=== PATIENT | female | born 1950 | race Caucasian/White ===

== ENCOUNTER 2016-08-20 15:27 | Inpatient (IN) | payer OTHER ==
[2016-08-20] MEDS ORDERED: Sodium Chloride 0.9% 1000 ML 1,000 ML ONE (16:09)
[2016-08-20] MEDS ORDERED: Sodium Chloride 0.9% 1000 ML 1,000 ML IV SCH ×2 (16:15→20:48)
--- NOTE | 2016-08-20 16:18 | ERPHSYRPT ---
- History of Present Illness Time Seen by Provider: 08/20/16 15:56 Source: patient Exam Limitations: clinical condition Patient Subjective Stated Complaint: PT REPORTS ALL OVER PAIN-ALL OVER JOINT PAIN-INTERMITTANT NUMBNESS ET TINGLING BEGINNING SEVERAL MONTHS AGO-DENIES CHANGES TO S/S-STATES THAT SOMETIMES GETTING A MASSAGE WILL HELP Triage Nursing Assessment: PT PINK WARM ET DRY-A & O X 3-RESP EASY ET NONLABORED -DENIES INJURY-STATES THAT PCP CHANGED HER CHOLESTEROL MEDICINE BUT SHE HAS NOT FOLLOWED UP AFTER THAT Physician History: PATIENT WITH HISTORY OF COPD, HYPERTENSION COMPLAINS OF GENERALIZED PAIN IN ALL JOINTS AND MUSCLES, WHICH SHE DESCRIBES CRAMPS FOR THE PAST 3 MONTHS. HAS OCCASIONAL DYSPNEA. DENIES FEVER, CHILLS, COUGH, CHEST PAIN, DIAPHORESIS AND PALPITATIONS Timing/Duration: other (FOR 3 MONTHS) Modifying Factors: Improves With: movement Associated Symptoms: other (PAIN IN JOINTS) Allergies/Adverse Reactions: No Known Drug Allergies Allergy (Verified 08/20/16 16:44) Home Medications: Amlodipine Besylate 10 mg [Norvasc 10 MG] 10 mg PO HS 08/20/16 [History] Citalopram Hydrobromide 20 mg* [ceLEXa 20 MG] 20 mg PO DAILY 08/20/16 [ History] Levothyroxine Sodium 75 Mcg [Synthroid 75 Mcg] 50 mcg PO DAILY 08/20/16 [ History] Potassium Chloride 10 Meq Tab* [Klor Con 10 MEQ] 10 meq PO HS 08/20/16 [ History] Hx Tetanus, Diphtheria Vaccination/Date Given: Yes Hx Influenza Vaccination/Date Given: No Hx Pneumococcal Vaccination/Date Given: No Immunizations Up to Date: Yes - Review of Systems Constitutional: No Fever, No Chills Eyes: No Symptoms Ears, Nose, & Throat: No Symptoms Respiratory: No Cough, No Dyspnea Cardiac: No Symptoms, No Chest Pain, No Edema, No Syncope Abdominal/Gastrointestinal: No Symptoms, No Abdominal Pain, No Nausea, No Vomiting, No Diarrhea Genitourinary Symptoms: No Symptoms, No Dysuria Musculoskeletal: Arthralgias, Myalgias, No Back Pain, No Neck Pain Skin: No Symptoms, No Rash Neurological: No Dizziness, No Focal Weakness, No Sensory Changes Psychological: No Symptoms Endocrine: No Symptoms All Other Systems: Reviewed and Negative - Past Medical History Pertinent Past Medical History: Yes Neurological History: No Pertinent History ENT History: No Pertinent History Cardiac History: No Pertinent History Respiratory History: Asthma Endocrine Medical History: Hypothyroidism Musculoskeletal History: No Pertinent History GI Medical History: No Pertinent History History: No Pertinent History Psycho-Social History: Depression Female Reproductive Disorders: No Pertinent History - Past Surgical History Past Surgical History: Yes Cardiac: Angioplasty - Social History Smoking Status: Never smoker Exposure to second hand smoke: No Drug Use: none Patient Lives Alone: No - Nursing Vital Signs Nursing Vital Signs: Initial Vital Signs Temperature 98.9 F Temperature Source Oral Pulse Rate 80 Respiratory Rate 20 Blood Pressure [] 125/65 Pain Intensity 9 - Physical Exam General Appearance: no apparent distress, alert Eye Exam: PERRL/EOMI, eyes nml inspection Ears, Nose, Throat Exam: normal ENT inspection, TMs normal, pharynx normal, moist mucous membranes Neck Exam: normal inspection, non-tender, supple, full range of motion Respiratory Exam: normal breath sounds, lungs clear, other (NO WHEEZES), No respiratory distress Cardiovascular Exam: regular rate/rhythm, normal heart sounds, normal peripheral pulses Gastrointestinal/Abdomen Exam: soft, normal bowel sounds, No tenderness, No mass Rectal Exam: normal exam Back Exam: normal inspection, normal range of motion, other (BILATERAL CALF TENDERNESS, NEGATIVE HOMMAN SIGN), No CVA tenderness, No vertebral tenderness Extremity Exam: normal inspection, normal range of motion, pelvis stable Neurologic Exam: alert, oriented x 3, cooperative, normal mood/affect, nml cerebellar function, nml station & gait, sensation nml, No motor deficits Skin Exam: normal color, warm, dry, No rash Lymphatic Exam: No adenopathy SpO2 Interpretation: normal SpO2: 98 Oxygen Delivery: Room Air - Course EKG Interpreted by Me: RATE, Sinus Rhythm (INFERIOR LATERAL ST SEGMENT DEPRESSION) - Radiology Exams Chest X-ray Interpretation: Reviewed by me (BILATERAL BREAST IMPLANTS, NO INFILTRATES) Ordered Tests: Active Orders 24 hr Category Date Time Status Coal Deliverer STAT Care 08/20/16 16:01 Active Clean Catch Urine Specimen STAT Care 08/20/16 16:16 Active EKG-ER Only STAT Care 08/20/16 16:01 Active IV Insertion STAT Care 08/20/16 16:16 Active Oxygen-ED Only NASAL CANNULA 3 lpm Care 08/20/16 17:46 Active CHEST 1 VIEW (PORTABLE) Stat Exams 08/20/16 16:02 Taken CBC W DIFF Stat Lab 08/20/16 16:15 Completed CK-Creatinine Phosphokinase Stat Lab 08/20/16 16:15 Completed CMP Stat Lab 08/20/16 16:15 Completed D-DIMER QUANTITATION Stat Lab 08/20/16 16:15 Completed Ferritin Stat Lab 08/20/16 17:00 Completed Manual Differential NC Stat Lab 08/20/16 16:15 Completed Myoglobin Stat Lab 08/20/16 16:15 Completed Occult Blood,Stool Other Stat Lab 08/20/16 16:27 Completed PROTIME WITH INR Stat Lab 08/20/16 16:15 Completed Peripheral Smear DrDomenicaordered Routine Lab 08/20/16 16:00 Received SED RATE [Erythrocyte Sedimentation Rate] Stat Lab 08/20/16 16:15 Completed TROPONIN Q3H Lab 08/20/16 16:01 Completed TROPONIN Q3H Lab 08/20/16 20:15 Ordered TROPONIN Q3H Lab 08/20/16 23:15 Ordered TROPONIN Q3H Lab 08/21/16 02:15 Ordered TROPONIN Q3H Lab 08/21/16 05:15 Ordered Urine Triage Profile Stat Lab 08/20/16 16:30 Completed Vitamin B12 Stat Lab 08/20/16 17:00 Completed Transfer Order Routine Transfer 08/20/16 17:19 Ordered Medication Summary Generic Name Dose Route Start Last Admin Trade Name Freq PRN Reason Stop Dose Admin Sodium Chloride 1,000 mls @ 100 mls/hr 08/20/16 16:15 08/20/16 16:32 Sodium Chloride 0.9% 1000 Ml IV 09/19/16 16:14 100 mls/hr .Q10H TARYN Administration Lab/Rad Data: Laboratory Result Diagrams 08/20/16 16:15 08/20/16 16:15 Laboratory Results 08/20/16 08/20/16 08/20/16 Range/Units 17:00 17:00 16:30 WBC (4.0-10.5) K/mm3 RBC (4.1-5.4) M/mm3 Hgb (12.0-16.0) gm/dl Hct (35-47) % MCV (78-100) fl MCH (26-32) pg MCHC (32-36) g/dl RDW (11.5-14.0) % Plt Count (150-450) K/mm3 MPV (6-9.5) fl Gran % (36.0-66.0) % Lymphocytes % (24.0-44.0) % Monocytes % (0.0-12.0) % Eosinophils % (0.00-5.0) % Basophils % (0.0-0.4) % Segmented Neutrophils (36.0-66.0) % Lymphocytes (Manual) (24-44) % Monocytes (Manual) (0.0-12.0) % Basophils # (0-0.4) Differential Comment Platelet Estimate (NORMAL) Hypochromasia Microcytosis ESR (0-20) mm/hr INR (0.8-3.0) D-Dimer (0.00-0.49) mg/L Sodium (136-145) mEq/L Potassium (3.5-5.1) mEq/L Chloride (98-107) mEq/L Carbon Dioxide (21-32) mEq/L Anion Gap (5-15) MEQ/L BUN (9-20) mg/dL Creatinine (0.55-1.30) mg/dl Estimated GFR ML/MIN Glucose (70-110) MG/DL Calcium (8.5-10.1) mg/dL Iron (50-175) ug/dl TIBC (250-450) ug/dl Iron Saturation (20-39) % Ferritin 4 L (8-388) Total Bilirubin (0.2-1.0) mg/dL AST (15-37) U/L ALT (12-78) U/L Alkaline Phosphatase (46-116) U/L Creatine Kinase (26-192) U/L Myoglobin (9.0-82.5) NG/ML Troponin I (0.000-0.056) ng/ml Serum Total Protein (6.4-8.2) gm/dL Albumin (3.4-5.0) g/dL Vitamin B12 285 (193-986) Stool Occult Blood (Negative) Urine Opiates Level NEG. (NEGATIVE) Ur Methadone NEG. (NEGATIVE) Urine Barbiturates NEG. (NEGATIVE) Ur Phencyclidine (PCP) NEG. (NEGATIVE) Urine Amphetamine NEG. (NEGATIVE) U Benzodiazepine Level NEG. (NEGATIVE) Urine Cocaine NEG. (NEGATIVE) Urine Marijuana (THC) NEG. (NEGATIVE) ABO Group A Rh Factor POSITIVE Antibody Screen NEGATIVE (NEGATIVE) Crossmatch COMPATIBLE (COMPATIBLE) 08/20/16 08/20/16 08/20/16 Range/Units 16:27 16:15 16:15 WBC (4.0-10.5) K/mm3 RBC (4.1-5.4) M/mm3 Hgb (12.0-16.0) gm/dl Hct (35-47) % MCV (78-100) fl MCH (26-32) pg MCHC (32-36) g/dl RDW (11.5-14.0) % Plt Count (150-450) K/mm3 MPV (6-9.5) fl Gran % (36.0-66.0) % Lymphocytes % (24.0-44.0) % Monocytes % (0.0-12.0) % Eosinophils % (0.00-5.0) % Basophils % (0.0-0.4) % Segmented Neutrophils (36.0-66.0) % Lymphocytes (Manual) (24-44) % Monocytes (Manual) (0.0-12.0) % Basophils # (0-0.4) Differential Comment Platelet Estimate (NORMAL) Hypochromasia Microcytosis ESR 39 H (0-20) mm/hr INR 1.07 (0.8-3.0) D-Dimer 0.596 H* (0.00-0.49) mg/L Sodium (136-145) mEq/L Potassium (3.5-5.1) mEq/L Chloride (98-107) mEq/L Carbon Dioxide (21-32) mEq/L Anion Gap (5-15) MEQ/L BUN (9-20) mg/dL Creatinine (0.55-1.30) mg/dl Estimated GFR ML/MIN Glucose (70-110) MG/DL Calcium (8.5-10.1) mg/dL Iron (50-175) ug/dl TIBC (250-450) ug/dl Iron Saturation (20-39) % Ferritin (8-388) Total Bilirubin (0.2-1.0) mg/dL AST (15-37) U/L ALT (12-78) U/L Alkaline Phosphatase (46-116) U/L Creatine Kinase (26-192) U/L Myoglobin (9.0-82.5) NG/ML Troponin I (0.000-0.056) ng/ml Serum Total Protein (6.4-8.2) gm/dL Albumin (3.4-5.0) g/dL Vitamin B12 (193-986) Stool Occult Blood NEGATIVE (Negative) Urine Opiates Level (NEGATIVE) Ur Methadone (NEGATIVE) Urine Barbiturates (NEGATIVE) Ur Phencyclidine (PCP) (NEGATIVE) Urine Amphetamine (NEGATIVE) U Benzodiazepine Level (NEGATIVE) Urine Cocaine (NEGATIVE) Urine Marijuana (THC) (NEGATIVE) ABO Group Rh Factor Antibody Screen (NEGATIVE) Crossmatch (COMPATIBLE) 08/20/16 08/20/16 08/20/16 Range/Units 16:15 16:15 16:01 WBC 5.9 (4.0-10.5) K/mm3 RBC 2.99 L (4.1-5.4) M/mm3 Hgb 6.7 L* (12.0-16.0) gm/dl Hct 23.2 L (35-47) % MCV 77.6 L (78-100) fl MCH 22.4 L (26-32) pg MCHC 28.9 L (32-36) g/dl RDW 15.2 H (11.5-14.0) % Plt Count 334 (150-450) K/mm3 MPV 9.4 (6-9.5) fl Gran % 63.7 (36.0-66.0) % Lymphocytes % 25.1 (24.0-44.0) % Monocytes % 7.3 (0.0-12.0) % Eosinophils % 3.4 (0.00-5.0) % Basophils % 0.5 (0.0-0.4) % Segmented Neutrophils 78 H (36.0-66.0) % Lymphocytes (Manual) 16 L (24-44) % Monocytes (Manual) 6 (0.0-12.0) % Basophils # 0.03 (0-0.4) Differential Comment ABNORMAL Platelet Estimate NORMAL (NORMAL) Hypochromasia 2+ Microcytosis 1+ ESR (0-20) mm/hr INR (0.8-3.0) D-Dimer (0.00-0.49) mg/L Sodium 139 (136-145) mEq/L Potassium 3.4 L (3.5-5.1) mEq/L Chloride 103 (98-107) mEq/L Carbon Dioxide 26.6 (21-32) mEq/L Anion Gap 13.0 (5-15) MEQ/L BUN 17 (9-20) mg/dL Creatinine 0.88 (0.55-1.30) mg/dl Estimated GFR > 60 ML/MIN Glucose 109 (70-110) MG/DL Calcium 8.1 L (8.5-10.1) mg/dL Iron (50-175) ug/dl TIBC (250-450) ug/dl Iron Saturation (20-39) % Ferritin (8-388) Total Bilirubin 0.2 (0.2-1.0) mg/dL AST 12 L (15-37) U/L ALT 13 (12-78) U/L Alkaline Phosphatase 67 (46-116) U/L Creatine Kinase 66 (26-192) U/L Myoglobin 32.0 (9.0-82.5) NG/ML Troponin I < 0.017 (0.000-0.056) ng/ml Serum Total Protein 6.8 (6.4-8.2) gm/dL Albumin 3.6 (3.4-5.0) g/dL Vitamin B12 (193-986) Stool Occult Blood (Negative) Urine Opiates Level (NEGATIVE) Ur Methadone (NEGATIVE) Urine Barbiturates (NEGATIVE) Ur Phencyclidine (PCP) (NEGATIVE) Urine Amphetamine (NEGATIVE) U Benzodiazepine Level (NEGATIVE) Urine Cocaine (NEGATIVE) Urine Marijuana (THC) (NEGATIVE) ABO Group Rh Factor Antibody Screen (NEGATIVE) Crossmatch (COMPATIBLE) 08/20/16 Range/Units 16:01 WBC (4.0-10.5) K/mm3 RBC (4.1-5.4) M/mm3 Hgb (12.0-16.0) gm/dl Hct (35-47) % MCV (78-100) fl MCH (26-32) pg MCHC (32-36) g/dl RDW (11.5-14.0) % Plt Count (150-450) K/mm3 MPV (6-9.5) fl Gran % (36.0-66.0) % Lymphocytes % (24.0-44.0) % Monocytes % (0.0-12.0) % Eosinophils % (0.00-5.0) % Basophils % (0.0-0.4) % Segmented Neutrophils (36.0-66.0) % Lymphocytes (Manual) (24-44) % Monocytes (Manual) (0.0-12.0) % Basophils # (0-0.4) Differential Comment Platelet Estimate (NORMAL) Hypochromasia Microcytosis ESR (0-20) mm/hr INR (0.8-3.0) D-Dimer (0.00-0.49) mg/L Sodium (136-145) mEq/L Potassium (3.5-5.1) mEq/L Chloride (98-107) mEq/L Carbon Dioxide (21-32) mEq/L Anion Gap (5-15) MEQ/L BUN (9-20) mg/dL Creatinine (0.55-1.30) mg/dl Estimated GFR ML/MIN Glucose (70-110) MG/DL Calcium (8.5-10.1) mg/dL Iron 10 L (50-175) ug/dl TIBC 415 (250-450) ug/dl Iron Saturation 2.4 L (20-39) % Ferritin (8-388) Total Bilirubin (0.2-1.0) mg/dL AST (15-37) U/L ALT (12-78) U/L Alkaline Phosphatase (46-116) U/L Creatine Kinase (26-192) U/L Myoglobin (9.0-82.5) NG/ML Troponin I (0.000-0.056) ng/ml Serum Total Protein (6.4-8.2) gm/dL Albumin (3.4-5.0) g/dL Vitamin B12 (193-986) Stool Occult Blood (Negative) Urine Opiates Level (NEGATIVE) Ur Methadone (NEGATIVE) Urine Barbiturates (NEGATIVE) Ur Phencyclidine (PCP) (NEGATIVE) Urine Amphetamine (NEGATIVE) U Benzodiazepine Level (NEGATIVE) Urine Cocaine (NEGATIVE) Urine Marijuana (THC) (NEGATIVE) ABO Group Rh Factor Antibody Screen (NEGATIVE) Crossmatch (COMPATIBLE) - Progress Progress Note: 08/20/16 17:16 PATIENT TYPED AND CROSSED FOR 4 UNITS PRBC 08/20/16 19:17 BLOOD TRANSFUSION INITIATED PRIOR TO TRANSFER TO FLOOR Discussed with : Yessi (DISCUSSED WITH DR Bari RAZA AT 1715 FOR ADMISSION) Will see patient in: hospital (full admit) - Departure Time of Disposition: 19:30 Departure Disposition: In-patient Admission Clinical Impression: SYMPTOMATIC ANEMIA Condition: Stable Critical Care Time: No Referrals: MINDY MILLER [Primary Care Provider] -
[2016-08-20 16:19] LABS: BASOPHIL % 0.5 % (0.0-0.4); Eosinophil % 3.4 % (0.00-5.0); Granulocytes % 63.7 % (36.0-66.0); Lymphocytes % 25.1 % (24.0-44.0); Mean Cell Volume 77.6 fl (78-100); Mean Corpuscular Hemoglobin 22.4 pg (26-32); Mean Platelet Volume 9.4 fl (6-9.5); Monocytes % 7.3 % (0.0-12.0); Platelet Count 334 K/mm3 (150-450); Red Blood Count 2.99 M/mm3 (4.1-5.4); Red Cell Distribution Width 15.2 % (11.5-14.0); White Blood Count 5.9 K/mm3 (4.0-10.5)
[2016-08-20 16:33] LABS: INR 1.07 (0.8-3.0)
[2016-08-20 16:49] LABS: ALBUMIN 3.6 g/dL (3.4-5.0); ALKALINE PHOSPHATASE 67 U/L (46-116); BILIRUBIN,TOTAL 0.2 mg/dL (0.2-1.0); BLOOD UREA NITROGEN 17 mg/dL (9-20); CHLORIDE 103 mEq/L (98-107); Carbon Dioxide 26.6 mEq/L (21-32); Glucose 109 MG/DL (70-110); Potassium 3.4 mEq/L (3.5-5.1); SGOT/AST 12 U/L (15-37); SGPT/ALT 13 U/L (12-78); SODIUM 139 mEq/L (136-145); Total Protein 6.8 gm/dL (6.4-8.2)
[2016-08-20 17:35] LABS: Platelet Estimate NORMAL (NORMAL); Total Cells Counted 100
[2016-08-20 17:36] LABS: Hypochromia 2+; Microcytosis 1+
[2016-08-20] MEDS ORDERED: Zofran 4 MG/2 ML VIAL IV PRN (20:48)
--- NOTE | 2016-08-20 21:08 | XRAY ---
Indication: Dyspnea and back pain. Comparison: November 25, 2014. Portable chest remains hyperinflated and clear. Heart is not enlarged. Vascular normal. Bony thorax intact again with mild osteopenia. Again bilateral breast implants. Impression: Stable nonacute chest with chronic features.
[2016-08-20] MEDS ORDERED: Xopenex 1.25 MG/0.5 ML UD NEBULE IH PRN (22:05)
[2016-08-20] MEDS ORDERED: PROVENTIL COMMON CANISTER IH PRN (22:05)
[2016-08-20] MEDS ORDERED: Sodium Chloride 3 ML UD NEBULES IH PRN (22:06)
[2016-08-21 05:33] LABS: BASOPHIL % 0.7 % (0.0-0.4); Eosinophil % 5.2 % (0.00-5.0); Granulocytes % 56.1 % (36.0-66.0); Lymphocytes % 25.5 % (24.0-44.0); Mean Cell Volume 81.1 fl (78-100); Mean Platelet Volume 9.6 fl (6-9.5); Monocytes % 12.5 % (0.0-12.0); Platelet Count 294 K/mm3 (150-450); Red Blood Count 3.97 M/mm3 (4.1-5.4); Red Cell Distribution Width 16.9 % (11.5-14.0); White Blood Count 5.5 K/mm3 (4.0-10.5)
[2016-08-21 05:38] LABS: Mean Corpuscular Hemoglobin 24.6 pg (26-32)
[2016-08-21 07:58] VITALS: BP 158/67; PULSE 69; O2SAT 94
--- NOTE | 2016-08-21 08:28 | PCM.DCORD ---
- Discharge Discharge Date: 08/21/16 Disposition: Home, Self-Care Condition: Stable Prescriptions: New Aspirin 81 mg PO DAILY #30 tablet Rosuvastatin Calcium [Crestor] 20 mg PO DAILY #30 tablet Ferrous Sulfate 325 mg [Feosol 325 mg] 325 mg PO TID #90 tablet Ranitidine HCl 0 mg PO DAILY #30 tablet Continue Potassium Chloride 10 Meq Tab* [Klor Con 10 MEQ] 10 meq PO HS Levothyroxine Sodium 75 Mcg [Synthroid 75 Mcg] 50 mcg PO DAILY Amlodipine Besylate 10 mg [Norvasc 10 MG] 10 mg PO HS Citalopram Hydrobromide 20 mg* [ceLEXa 20 MG] 20 mg PO DAILY Clopidogrel Bisulfate 75 mg [PLAVIX 75 MG Tablet] 75 mg PO DAILY Additional Instructions: Dr. Ying for upper and lower endoscopy diagnosis iron deficiency anemia prefers Sunday or Sunday appointment if possible Follow up with: CHICO RAZA [ACTIVE STAFF] - 1 Week NILTON YING JR [NON-STAFF PHY W/O PRIVILEGES] - 1 Week
[2016-08-21] MEDS ORDERED: NORVASC 5 MG PO SCH (10:00)
[2016-08-21] MEDS ORDERED: Klor Con 10 MEQ PO SCH (10:00)
--- NOTE | 2016-08-21 21:07 | PCM.HP ---
History of Present Illness - Chief Complaint Chief Complaint: Symptomatic Anemia Date: 08/21/16 History of Present Illness: is a 65 year old female. with history of copd and severe peripheral vascular disease with previous carotid endarterectomy bilateral and fem fem bypass in the past. She has had upper and lower scopes several years ago by Dr. Raman in [place] with polyps and she was to follow up. She has been having progressively increaseing fatigue weakness and myalgias over the past few months. [facility] tried stopping crestor with no help and eventually became very short of breath and weak yesterday and came to ED and was found to have severe anemia iron deficiency and heme negative stools. She does not recall any dark or tarry stools on other blood loss. She has no chest pain and she feels much better with shortness of breath resolved after the transfusion that she tolerated well. - Review of Systems Constitutional: Fatigue, No Fever, No Chills Eyes: No Symptoms Ears, Nose, & Throat: No Symptoms Respiratory: Short Of Breath, No Cough Cardiac: No Chest Pain, No Edema, No Syncope Abdominal/Gastrointestinal: No Abdominal Pain, No Nausea, No Vomiting, No Diarrhea Genitourinary Symptoms: No Dysuria Musculoskeletal: No Back Pain, No Neck Pain Skin: No Rash Neurological: No Dizziness, No Focal Weakness, No Sensory Changes Psychological: No Symptoms Endocrine: No Symptoms Hematologic/Lymphatic: No Symptoms Immunological/Allergic: No Symptoms Medications & Allergies Home Medications: Home Medication List Amlodipine Besylate 10 mg [Norvasc 10 MG] 10 mg PO HS 08/20/16 [History Confirmed 08/20/16] Citalopram Hydrobromide 20 mg* [ceLEXa 20 MG] 20 mg PO DAILY 08/20/16 [ History Confirmed 08/20/16] Clopidogrel Bisulfate 75 mg [PLAVIX 75 MG Tablet] 75 mg PO DAILY 08/20/16 [History Confirmed 08/20/16] Levothyroxine Sodium 75 Mcg [Synthroid 75 Mcg] 50 mcg PO DAILY 08/20/16 [ History Confirmed 08/20/16] Potassium Chloride 10 Meq Tab* [Klor Con 10 MEQ] 10 meq PO HS 08/20/16 [ History Confirmed 08/20/16] Aspirin 81 mg PO DAILY #30 tablet 08/21/16 [Rx] Ferrous Sulfate 325 mg [Feosol 325 mg] 325 mg PO TID #90 tablet 08/21/16 [ Rx] Ranitidine HCl 0 mg PO DAILY #30 tablet 08/21/16 [Rx] Rosuvastatin Calcium [Crestor] 20 mg PO DAILY #30 tablet 08/21/16 [Rx] Allergies/Adverse Reactions: Allergies Allergy/AdvReac Type Severity Reaction Status Date / Time No Known Drug Allergies Allergy Verified 08/20/16 16:44 - Past Medical History Past Medical History: Yes Neurological History: No Pertinent History ENT History: No Pertinent History Cardiac History: No Pertinent History Respiratory History: Asthma Endocrine Medical History: Hypothyroidism Musculoskelatal History: No Pertinent History GI Medical History: No Pertinent History History: No Pertinent History Pyscho-Social History: Depression Reproductive Disorders: No Pertinent History - Female History Are you now?: No - Past Surgical History Past Surgical History: Yes Neuro Surgical History: No Pertinent History Cardiac History: Angioplasty Respiratory Surgery: No Pertinent History GI Surgical History: No Pertinent History Genitourinary Surgical Hx: No Pertinent History Musculskeletal Surgical Hx: No Pertinent History Female Surgical History: Hysterectomy - Social History Smoking Status: Never smoker Exposure to second hand smoke: No Alcohol: None Drug Use: none - Physical Exam Vital Signs: Vital Signs - 24 hr Temp Pulse Resp BP Pulse Ox 08/21/16 08:00 16 08/21/16 07:57 98.3 F 69 16 158/67 94 L 08/21/16 04:00 98.2 F 75 18 116/56 95 08/21/16 01:25 18 08/21/16 00:00 98.3 F 80 20 98/60 97 08/20/16 22:00 70 18 99 General Appearance: no apparent distress, alert Neurologic Exam: alert, oriented x 3, cooperative, normal mood/affect, nml cerebellar function, nml station & gait, sensation nml, No motor deficits Eye Exam: PERRL/EOMI, eyes nml inspection Ears, Nose, Throat Exam: normal ENT inspection, TMs normal, pharynx normal, moist mucous membranes Neck Exam: normal inspection, non-tender, supple, full range of motion Respiratory Exam: normal breath sounds, lungs clear, No respiratory distress Cardiovascular Exam: regular rate/rhythm, normal heart sounds, normal peripheral pulses Gastrointestinal/Abdomen Exam: soft, normal bowel sounds, No tenderness, No mass Back Exam: normal inspection, normal range of motion, No CVA tenderness, No vertebral tenderness Extremity Exam: normal inspection, normal range of motion, pelvis stable Skin Exam: normal color, warm, dry, No rash Lymphatic Exam: No adenopathy Results - Labs Lab/Micro Results: Lab Results-Last 24 Hours 08/20/16 08/21/16 08/21/16 Range/Units 23:45 02:40 05:12 WBC (4.0-10.5) K/mm3 RBC (4.1-5.4) M/mm3 Hgb (12.0-16.0) gm/dl Hct (35-47) % MCV (78-100) fl MCH (26-32) pg MCHC (32-36) g/dl RDW (11.5-14.0) % Plt Count (150-450) K/mm3 MPV (6-9.5) fl Gran % (36.0-66.0) % Lymphocytes % (24.0-44.0) % Monocytes % (0.0-12.0) % Eosinophils % (0.00-5.0) % Basophils % (0.0-0.4) % Basophils # (0-0.4) Troponin I 0.017 < 0.017 < 0.017 (0.000-0.056) ng/ml 08/21/16 Range/Units 05:12 WBC 5.5 (4.0-10.5) K/mm3 RBC 3.97 L (4.1-5.4) M/mm3 Hgb 9.8 L (12.0-16.0) gm/dl Hct 32.2 L (35-47) % MCV 81.1 (78-100) fl MCH 24.6 L (26-32) pg MCHC 30.4 L (32-36) g/dl RDW 16.9 H (11.5-14.0) % Plt Count 294 (150-450) K/mm3 MPV 9.6 H (6-9.5) fl Gran % 56.1 (36.0-66.0) % Lymphocytes % 25.5 (24.0-44.0) % Monocytes % 12.5 H (0.0-12.0) % Eosinophils % 5.2 H (0.00-5.0) % Basophils % 0.7 (0.0-0.4) % Basophils # 0.04 (0-0.4) Troponin I (0.000-0.056) ng/ml - Other Procedures and Tests Respiratory Therapy 08/20/16 22:05 Respiratory MDI Respiratory Nebulizer Assessment/Plan (1) Iron deficiency anemia Status: Acute Assessment & Plan: severe symptomatic transfused 2 Units prbc retic count, folate, LEONIDES and peripheral smear are pending she is doing much better no ongoing blood loss follow up in 1 week repeat levels she is going to have repeat upper and lower endoscopy outpatient by Dr. Raman. start iron therapy Code(s): D50.9 - IRON DEFICIENCY ANEMIA, UNSPECIFIED (2) Peripheral vascular disease Status: Acute Code(s): I73.9 - PERIPHERAL VASCULAR DISEASE, UNSPECIFIED
== END 2016-08-21 10:07 | disposition home or self-care (01) | DRG 812 ==
LOC: ED 15:27 → MED SURG 20:35
PROVIDERS: ADMIT Family Medicine; ATTEND Family Medicine
DX: D50.9 Iron deficiency anemia, unspecified (principal); I73.9 Peripheral vascular disease, unspecified; E03.9 Hypothyroidism, unspecified; J45.909 Unspecified asthma, uncomplicated; F32.9 Major depressive disorder, single episode, unspecified; Z98.61 Coronary angioplasty status
CPT/HCPCS: 36000; 36415; 36430; 71010; 80053; 80307; 82272; 82550; 82607; 82728; 82747; 83540; 83550; 83874; 84484; 85025; 85045; 85060; 85379; 85610; 85652; 86038; 86850; 86900; 86901; 86922; 93005; 93041; 94760; 99285; P9016; A9270-GY

== ENCOUNTER 2016-10-02 10:39 | Day surgery (SDC) | payer MEDICARE, OTHER ==
--- NOTE | 2016-10-02 08:26 | HP ---
PROCEDURE DATE: 10/02/16 HISTORY OF PRESENT ILLNESS: 65 y/o had recent blood transfusion of 2 units in August. Had some dark stools. Last colonoscopy was 2-3 years ago. She had some polyps removed. At this time, the dark stools improved. She has been on iron and is unclear the true color her stools are without the iron. She has got anemia. Radiology recommended upper and lower endoscopy for further evaluation. PAST MEDICAL HISTORY: Peripheral vascular disease, hypothyroidism, and hypertension. CURRENT MEDICATIONS: Ranitidine, aspirin, Klor-Con, citalopram, Clopidogrel, amlodipine, levothyroxine, ferrous sulfate, and rosuvastatin calcium. Please see the patient's spelling. ALLERGIES: NKDA. PAST SURGICAL HISTORY: She had FEM-FEM bypass, bilateral carotid endarterectomy. FAMILY HISTORY: Diabetes, heart disease, and stroke. SOCIAL HISTORY: No smoking or alcohol abuse currently. REVIEW OF SYSTEMS: 12 systems reviewed pertinent for admission assessment. No chest pain or palpitations. Other systems negative or noncontributory other than above and per preadmission questionnaire. PHYSICAL EXAMINATION: GENERAL: No acute distress. HEENT: Sclerae nonicteric. NECK: No JVD. CHEST: Clear to auscultation. CVS: Regular rhythm. ABDOMEN: Soft, nontender. No peritoneal signs. EXTREMITIES: No significant edema. NEURO: A&O, moving extremities symmetrically. No gross motor deficits noted. IMPRESSION: 1. ANEMIA, UNCLEAR ETIOLOGY. [place] she would benefit from upper and lower endoscopy for further evaluation. Risks and benefits explained in detail, but not limited to, bleeding; infection; small risk of bowel injury or perforation possibly requiring open procedure; small risk of missed or nondiagnosis or incomplete exam possibly requiring barium enema or other studies or procedures; general risks of anesthesia or sedation; risk of bowel prep; postoperative risk of nausea, vomiting, or cramping, but not limited to as well as possibility of inability to diagnose the etiology of her anemia possibly requiring other testing or referral to other specialists. She understands and agrees to the planned procedure. Will proceed with EGD and colonoscopy as an outpatient.
[~2016-10-02 10:39] MED LIST: DIPRIVAN 200 MG/20 ML IV ONE; Ketamine HCl 50 MG/ML IV ONE
[2016-10-02] MEDS ORDERED: Lactated Ringers 1,000 ML IV SCH (11:00)
--- NOTE | 2016-10-02 14:40 | OP ---
SURGERY DATE/TIME: 10/02/2016 1220 PREOPERATIVE DIAGNOSES: 1) History of polyps. 2) History of dark stools. 3) History of anemia; rule out upper or lower GI source. POSTOPERATIVE DIAGNOSES: 1) Minimal to mild gastritis. 2) Short segment of small fingerlet, question distal gastroesophagitis versus metaplasia path pending. 3) Poor bowel prep limiting exam. 4) Few diverticula. 5) Small internal and external hemorrhoids. 6) Small raised lesions versus hyperplastic lesion versus early polyps in the upper rectum, rectosigmoid area. PROCEDURES: 1) EGD with cold biopsy of the antrum. 2) Cold biopsy distal esophagus. 3) Colonoscopy to terminal ileum. 4) Retrograde ileoscopy. 5) Hot biopsy small vague raised lesions upper rectum rectosigmoid area. SURGEON: Dr. Kali Martinez. ANESTHESIA: MAC. ESTIMATED BLOOD LOSS: Minimal. INDICATIONS: As noted above. Risks and benefits explained in detail and not limited to and consent obtained. DESCRIPTION OF PROCEDURE AND FINDINGS: The patient was taken to the endoscopy room. MAC anesthesia induced. After official time out and no disagreement with planned procedure, a bite block positioned. Video gastroscope easily passed down the esophagus through the patent pylorus to the junction of the second and third portion of the duodenum. Duodenum and duodenal bulb grossly unremarkable. Back in the stomach she had some minimal to mild gastritis, no evidence of any ulcers, polyps or masses. Cold biopsy taken in the antrum to evaluate for Helicobacter pylori. Otherwise on retroflex the gastroesophageal junction is fairly snug against the scope. There are no signs of any large hiatal hernia. There are no signs of any obvious polyps or masses. There are no signs of any ulcers or other mucosal lesions. There were no signs of any active bleeding. The scope is pulled back to the gastroesophageal junction about 40 cm. There was one small short fingerlet question distal gastroesophagitis versus metaplasia. Cold biopsy taken to evaluate for esophagitis versus Brock's, path pending. Good hemostasis noted. Otherwise the remainder of the esophagus grossly unremarkable. No signs of any obvious masses. There are no obvious major upper GI source of anemia, no signs of any active bleeding. The scope is withdrawn. The patient tolerated the procedure well. There were no immediate complications. Attention is then turned to colonoscopy. Digital rectal exam did not reveal any rectal masses. She did have some small internal and external hemorrhoids. Video colonoscope inserted and passed through the tortuous sigmoid, descending, transverse colon. With external pressure and positioning on back the scope was able to be passed up into the terminal ileum. Retrograde ileoscopy was performed. Terminal ileum grossly unremarkable. No signs of any inflammatory disease or any other mucosal abnormalities. The terminal ileum looked basically unremarkable. The scope pulled back into the cecum. Prep overall was poor with several areas of liquidy semi-solid stool limiting the exam for potential small lesions. This was suction irrigated as well as possible but did limit the exam. The scope is slowly and carefully withdrawn. There are no signs of any large polyps, masses or obstructing lesions. She did have some mild diverticulosis. She did have some small internal and external hemorrhoids. Otherwise back in the rectosigmoid above the rectal area there were two small raised lesions whether these are simple early polyps versus hyperplastic lesion versus early true polyp removed with hot biopsy forceps with brief bursts of cautery. Good hemostasis noted. Otherwise she had internal and external hemorrhoids. Again very limited rectal exam but there were no signs of any large polyps, masses or obstructing lesions. She had small internal and external hemorrhoids. There had been no obvious signs of gross anemia, no signs of any active bleeding. It was felt if she persisted to have anemia, she may need work up by mucking machine operator for further evaluation or could consider PillCam as she denies any gross bloody stools. Findings discussed with the family or friend out in the waiting area.
[2016-10-02 17:04] VITALS: PULSE 77; O2SAT 94
[2016-10-02 17:06] VITALS: BP 151/83
== END 2016-10-02 14:35 | disposition home or self-care (01) ==
LOC: SDC 10:39
PROVIDERS: ATTEND Surgery
PROC: 0DB38ZX Excision of Lower Esophagus, Via Natural or Artificial Opening Endoscopic, Diagnostic (ICD-10-PCS; principal; 2016-10-02)
PROC: 0DB88ZX Excision of Small Intestine, Via Natural or Artificial Opening Endoscopic, Diagnostic (ICD-10-PCS; 2016-10-02)
PROC: 0DBP8ZX Excision of Rectum, Via Natural or Artificial Opening Endoscopic, Diagnostic (ICD-10-PCS; 2016-10-02)
PROC: 0DBN8ZX Excision of Sigmoid Colon, Via Natural or Artificial Opening Endoscopic, Diagnostic (ICD-10-PCS; 2016-10-02)
DX: K29.70 Gastritis, unspecified, without bleeding (principal); K57.90 Diverticulosis of intestine, part unspecified, without perforation or abscess without bleeding; K64.4 Residual hemorrhoidal skin tags; K64.8 Other hemorrhoids; K62.9 Disease of anus and rectum, unspecified; Z86.2 Personal history of diseases of the blood and blood-forming organs and certain disorders involving the immune mechanism
CPT/HCPCS: 00740; 00810; 36415; 85014; 85018; 88305; J2704

== ENCOUNTER 2018-04-06 11:41 | Emergency (ER) | payer MEDICARE, OTHER ==
[2018-04-06] MEDS ORDERED: Sodium Chloride 0.9% 1000 ML 1,000 ML (12:16)
[2018-04-06] MEDS ORDERED: solu-MEDROL 125 MG (12:16)
[2018-04-06 12:17] LABS: BASOPHIL % 0.1 % (0.0-0.4); Basophil (Absolute #) 0.01 (0-0.4); Eosinophil (Absolute #) 0 (0-0.5); Granulocyte Absolute (ANC) 14.44 (1.4-6.9); Granulocytes % 87.6 % (36.0-66.0); Hemoglobin 11.6 gm/dl (12.0-16.0); Lymphocyte (Absolute #) 0.65 (1.0-4.6); Lymphocytes % 3.9 % (24.0-44.0); Mean Cell Volume 98.9 fl (78-100); Mean Corpuscular Hgb Concent. 32.2 g/dl (32-36); Mean Platelet Volume 10.1 fl (6-9.5); Monocyte (Absolute #) 1.38 (0.0-1.3); Monocytes % 8.4 % (0.0-12.0); Platelet Count 298 K/mm3 (150-450); Red Blood Count 3.64 M/mm3 (4.1-5.4); Red Cell Distribution Width 14.1 % (11.5-14.0); White Blood Count 16.5 K/mm3 (4.0-10.5)
[2018-04-06 12:22] LABS: ADD MANUAL DIFF? NO (NO); Mean Corpuscular Hemoglobin 31.8 pg (26-32)
[2018-04-06] MEDS: Sodium Chloride 0.9% 1000 ML 1,000 ML IV (12:23)
[2018-04-06] MEDS: solu-MEDROL 125 MG IV (12:23)
[2018-04-06 12:25] LABS: INR 1.16 (0.8-3.0); PROTIME 13.5 SECONDS (9.95-12.35)
[2018-04-06 12:36] LABS: D-DIMER QUANTITATION 639 ng/mL (215-500)
[2018-04-06 12:37] LABS: ALBUMIN 4.4 g/dL (3.5-5.0); ALKALINE PHOSPHATASE 88 U/L (38-126); ANION GAP 16.3 MEQ/L (5-15); BLOOD UREA NITROGEN 18 mg/dL (7-17); CHLORIDE 99 mmol/L (98-107); Calcium 9.5 mg/dL (8.4-10.2); Carbon Dioxide 26 mmol/L (22-30); Creatinine 1 0.71 mg/dL (0.52-1.04); EST GLOMERULAR FILTRATION RATE > 60.0 ML/MIN; Glucose 160 mg/dL (74-106); NT PRO BNP 3490 pg/mL (0-900); Potassium 3.7 mmol/L (3.5-5.1); SGOT/AST 11 U/L (14-36); SGPT/ALT 13 U/L (0-35); SODIUM 138 mmol/L (137-145); Total Protein 7.1 g/dL (6.3-8.2)
[2018-04-06 12:40] LABS: VBG BASE EXCESS 4.5 (-2.0-2.0); VBG CARBOXYHEMOGLOBIN 4.8 % T HGB (0.0-6.9); VBG HCO3- 28.4 meq/L (22-28); VBG HEMOGLOBIN 14.9; VBG O2 SATURATION 67.9 (95-100); VBG PCO2 39 mm/Hg (42-55); VBG PO2 31 mm/Hg (25-40); VBG POTASSIUM 3.8 (3.5-5.1); VBG pH 7.47 (7.32-7.42)
[2018-04-06] MEDS ORDERED: DUONEB 0.5-3 MG/3 ml Neb IH (13:25)
[2018-04-06] MEDS: DUONEB 0.5-3 MG/3 ml Neb IH (13:26)
[2018-04-06] MEDS ORDERED: ROCEPHIN 1 Gm-D5w 50 ml Bag** 1 G/50 ML IVPB IV (13:56)
[2018-04-06] MEDS: ROCEPHIN 1 Gm-D5w 50 ml Bag** 1 G/50 ML IVPB IV (13:57)
[2018-04-06] MEDS ORDERED: BENADRYL 50 MG/ML (14:11)
[2018-04-06] MEDS: BENADRYL 50 MG/ML IV (14:16)
[2018-04-06 15:35] LABS: Lactic Acid 1.7 (0.4-2.0)
[2018-04-06 15:45] LABS: TROPONIN 0.015 ng/mL (0.000-0.034)
== END 2018-04-06 16:19 | disposition home or self-care (01) ==
LOC: ED 11:41
CPT/HCPCS: 36000; 36415; 71045; 71260; 80053; 82805; 83605; 83880; 84484; 85025; 85379; 85610; 85730; 93005; 93041; 94150; 94640; 96374; J0696; J1200; J2930

== ENCOUNTER 2018-05-09 08:45 | Inpatient (IN) | payer MEDICARE, OTHER ==
[2018-05-09] MEDS ORDERED: DUONEB 0.5-3 MG/3 ml Neb IH ONE ×2 (08:48)
[2018-05-09] MEDS ORDERED: solu-MEDROL 125 MG IV ONE (08:55)
[2018-05-09] MEDS ORDERED: Sodium Chloride 0.9% 1000 ML 1,000 ML IV SCH ×2 (09:00→13:53)
[2018-05-09] MEDS ORDERED: solu-MEDROL 125 MG ONE (09:01)
--- NOTE | 2018-05-09 09:02 | ERPHSYRPT ---
- History of Present Illness Time Seen by Provider: 05/09/18 08:56 Source: patient Exam Limitations: no limitations Patient Subjective Stated Complaint: pt here for increase sob for 4 days now, worse this morning, no fever today.pt wears home o2 as needed, has cough Triage Nursing Assessment: pt alert, only able to say 2 word sentences, sob, sat 85% on ra, chest diminished, resp labored, productive cough. no edema noted Physician History: 67-year-old white female with history of angina, hyperlipidemia, high blood pressure, asthma, COPD, hypothyroidism, GERD, depression arrives with complaint of moderate of shortness of breath symptoms for 4 days cough productive of clear sputum pain anterior chest with breathing no fevers no nausea no vomiting Patient arrives obviously short of breath she has diminished breath sounds throughout. Past medical history includes angina, hyperlipidemia, high blood pressure, asthma, COPD, hypothyroidism, GERD, depression Past surgical history includes cardiac catheter, angioplasty, hysterectomy, femoral bypass, Social history former smoker Timing/Duration: day(s) (4 days) Activities at Onset: none Severity of Dyspnea-Max: moderate Possible Cause: occasional episodes Modifying Factors: Improves With: nothing Associated Symptoms: constant, chest pain/discomfort (pain and chest anterior with breathing), wheezing, painful breathing, productive cough (clear sputum), No intermittent, No anxiety, No edema, No fever, No insomnia, No loss of appetite, No lightheadedness, No weakness, No ankle swelling, No chills, No hemoptysis, No calf pain, No dizziness, No heaviness, No heart racing, No lightheadedness, No leg swelling, No muscle spasms feet, No muscle spasms hands , No tightness, No tingling face, No tingling hands International travel in last 2 weeks: No Allergies/Adverse Reactions: No Known Drug Allergies Allergy (Verified 05/09/18 08:57) Home Medications: Amlodipine Besylate 10 mg [Norvasc 10 MG] 5 mg PO HS 08/20/16 [History] Citalopram Hydrobromide 20 mg* [ceLEXa 20 MG] 20 mg PO DAILY 08/20/16 [ History] Clopidogrel Bisulfate 75 mg [PLAVIX 75 MG Tablet] 75 mg PO DAILY 08/20/16 [History] Levothyroxine Sodium 75 Mcg [Synthroid 75 Mcg] 50 mcg PO DAILY 08/20/16 [ History] Potassium Chloride 10 Meq Tab* [Klor Con 10 MEQ] 10 meq PO HS 08/20/16 [ History] Albuterol 2.5 mg/3 ml Neb [Proventil 2.5 mg/3 ml Neb] 2.5 mg IH UD [History] Rosuvastatin Calcium [Crestor] 40 mg PO DAILY 09/28/16 [History] Cilostazol 100 mg [Pletal 100 MG] 50 mg PO BID 04/06/18 [History] Fluticasone/Vilanterol [Breo Ellipta 200-25 Mcg INH] 1 inh PO DAILY 04/06/18 [ History] Loratadine 10 mg [Claritin 10 mg] 10 mg PO DAILY 04/06/18 [History] PANTOPRAZOLE 40 mg Tablet [Protonix 40MG Tablet] 40 mg PO QAM 04/06/18 [ History] Hx Tetanus, Diphtheria Vaccination/Date Given: Yes Hx Influenza Vaccination/Date Given: Yes Hx Pneumococcal Vaccination/Date Given: Yes Immunizations Up to Date: Yes - Review of Systems Constitutional: No Fever, No Chills Eyes: No Symptoms Ears, Nose, & Throat: No Symptoms Respiratory: Cough, Dyspnea, Wheezing Cardiac: Chest Pain (Pain anterior chest with breathing), No Edema, No Palpitations, No Syncope, No Orthopnea, No PND Abdominal/Gastrointestinal: No Abdominal Pain, No Nausea, No Vomiting, No Diarrhea Genitourinary Symptoms: No Dysuria Musculoskeletal: No Back Pain, No Neck Pain Skin: No Rash Neurological: No Dizziness, No Focal Weakness, No Sensory Changes Psychological: No Symptoms Endocrine: No Symptoms All Other Systems: Reviewed and Negative - Past Medical History Pertinent Past Medical History: Yes Neurological History: No Pertinent History ENT History: No Pertinent History Cardiac History: Angina, High Cholesterol, Hypertension Respiratory History: Asthma, COPD Endocrine Medical History: Hypothyroidism Musculoskeletal History: No Pertinent History GI Medical History: GERD History: No Pertinent History Psycho-Social History: Depression Female Reproductive Disorders: No Pertinent History - Past Surgical History Past Surgical History: Yes Neuro Surgical History: No Pertinent History Cardiac: Angioplasty, Cardiac Catheterization Respiratory: No Pertinent History Gastrointestinal: No Pertinent History Genitourinary: No Pertinent History Musculoskeletal: No Pertinent History Female Surgical History: Hysterectomy Other Surgical History: femoral bypass. bilateral carotids - Social History Smoking Status: Former smoker How long have you smoked: 40years Exposure to second hand smoke: No Drug Use: none Patient Lives Alone: No - Female History Hx Last Menstrual Period: post - Nursing Vital Signs Nursing Vital Signs: Initial Vital Signs Temperature 98.4 F 05/09/18 08:47 Pulse Rate 98 H 05/09/18 08:47 Respiratory Rate 40 H 05/09/18 08:47 Blood Pressure 193/89 05/09/18 08:47 O2 Sat by Pulse Oximetry 85 L 05/09/18 08:47 Pain Scale Pain Intensity 3 - Physical Exam General Appearance: moderate distress, alert, other (thin white female alert moderate distress) Eye Exam: PERRL/EOMI Ears, Nose, Throat Exam: hearing grossly normal, normal ENT inspection, normal pharynx, No abnormal TM (R), No abnormal TM (L) Neck Exam: normal inspection, supple Respiratory Exam: diminished breath sounds (w) Cardiovascular/Chest Exam: normal heart sounds, normal peripheral pulses, No edema Abdominal/Gastrointestinal Exam: soft, No tenderness, No distention, No mass Extremity Exam: non-tender, normal range of motion, normal inspection, no calf tenderness, no pedal edema Peripheral Pulses Exam: dorsalis-pedis (R): 2+, dorsalis-pedis (L): 2+ Neurologic Exam: alert, oriented x 3, cooperative, food preparation supervisor II-XII nml as tested, sensation nml, No motor deficits Skin Exam: normal color, warm, No dry SpO2 Interpretation: hypoxic (85% room air) SpO2: 95 Oxygen Delivery: Room Air - Course Nursing assessment & vital signs reviewed: Yes EKG Interpreted by Me: RATE (97 bpm), Sinus Rhythm, NORMAL AXIS, Other (EKG sinus rhythm, 97 bpm, normal axis, nonspecific ST and T wavechanges, no acute ST or T wave changes, compared to April 06, 2018) - Radiology Exams Chest X-ray Interpretation: Discussed w/ radiologist (CXR: non acute , hyperinflated chest with chronic features) - CT Exams Chest CT Interpretation: Discussed w/radiologist (chest CT: Impression: 1. Negative for pulmonary embolism. 2. Clearing of previou left upper lobe airspace disease with now focal fibrosis/scarrng. 3. No acute cardiopulmonary abnormalities. 4. Stable pulmonary emphysema, heavy arterial sclerotic disease , incompletely visualize, noncalcified bilateral adrenal gland. And evidence of old granulomatous disease) Ordered Tests: Active Orders 24 hr Category Date Time Status Heel Washer Stringing Machine Operator STAT Care 05/09/18 08:49 Active EKG-ER Only STAT Care 05/09/18 08:48 Active IV Insertion STAT Care 05/09/18 08:48 Active Pulse Oximetry (ED) STAT Care 05/09/18 08:48 Active CHEST 1 VIEW (PORTABLE) Stat Exams 05/09/18 08:48 Completed CHEST WITH CONTRAST [CT] Stat Exams 05/09/18 09:52 Completed BLOOD CULTURE Stat Lab 05/09/18 09:10 Received CBC W DIFF Stat Lab 05/09/18 09:00 Completed CMP Stat Lab 05/09/18 08:48 Completed CULTURE,SPUTUM Stat Lab 05/09/18 08:54 Uncollected D-DIMER QUANTITATION Stat Lab 05/09/18 09:00 Completed PROTIME WITH INR Stat Lab 05/09/18 09:00 Completed PTT Stat Lab 05/09/18 09:00 Completed TROPONIN Q3H Lab 05/09/18 09:00 Completed TROPONIN Q3H Lab 05/09/18 12:00 Ordered TROPONIN Q3H Lab 05/09/18 15:00 Ordered TROPONIN Q3H Lab 05/09/18 18:00 Ordered TROPONIN Q3H Lab 05/09/18 21:00 Ordered VENOUS BLOOD GAS Stat Lab 05/09/18 09:00 Completed Respiratory Nebulizer STAT RT 05/09/18 08:49 Completed Respiratory Nebulizer STAT RT 05/09/18 09:35 Completed Respiratory Therapy Assessment DAILY RT 05/09/18 08:57 Active Medication Summary Generic Name Dose Route Start Last Admin Trade Name Freq PRN Reason Stop Dose Admin Sodium Chloride 1,000 mls @ 100 mls/hr 05/09/18 09:00 05/09/18 09:04 Sodium Chloride 0.9% 1000 Ml IV 06/08/18 08:59 100 mls/hr .Q10H TARYN Administration Discontinued Medications Generic Name Dose Route Start Last Admin Trade Name Freq PRN Reason Stop Dose Admin Albuterol Sulfate 2.5 mg 05/09/18 09:34 05/09/18 09:41 Proventil 2.5 Mg/3 Ml Neb IH 05/09/18 09:35 2.5 mg STAT ONE Administration Albuterol Sulfate Confirm 05/09/18 09:39 Proventil 2.5 Mg/3 Ml Neb Administered 05/09/18 09:40 Dose 2.5 mg IH .STK-MED ONE Albuterol/Ipratropium 3 ml 05/09/18 08:48 05/09/18 08:52 Duoneb 0.5-3 Mg/3 Ml Neb IH 05/09/18 08:49 3 ml STAT ONE Administration Albuterol/Ipratropium Confirm 05/09/18 08:48 Duoneb 0.5-3 Mg/3 Ml Neb Administered 05/09/18 08:49 Dose 3 ml IH .STK-MED ONE Methylprednisolone Sodium Succinate 125 mg 05/09/18 08:55 05/09/18 09:04 Solu-Medrol 125 Mg IV 05/09/18 08:56 125 mg STAT ONE Administration Methylprednisolone Sodium Succinate Confirm 05/09/18 09:01 Solu-Medrol 125 Mg Administered 05/09/18 09:02 Dose 125 mg .ROUTE .STK-MED ONE Lab/Rad Data: Laboratory Result Diagrams 05/09/18 09:00 05/09/18 08:48 Laboratory Results 05/09/18 05/09/18 05/09/18 Range/Units 09:00 09:00 09:00 WBC (4.0-10.5) K/mm3 RBC (4.1-5.4) M/mm3 Hgb (12.0-16.0) gm/dl Hct (35-47) % MCV (78-100) fl MCH (26-32) pg MCHC (32-36) g/dl RDW (11.5-14.0) % Plt Count (150-450) K/mm3 MPV (6-9.5) fl Gran % (36.0-66.0) % Eos # (Auto) (0-0.5) Absolute Lymphs (auto) (1.0-4.6) Absolute Monos (auto) (0.0-1.3) Lymphocytes % (24.0-44.0) % Monocytes % (0.0-12.0) % Eosinophils % (0.00-5.0) % Basophils % (0.0-0.4) % Absolute Granulocytes (1.4-6.9) Basophils # (0-0.4) PT 12.4 H (9.95-12.35) SECONDS INR 1.07 (0.8-3.0) APTT 26.8 (25.3-37.0) SECONDS D-Dimer 799 H* (215-500) ng/mL pO2/FiO2 Ratio 28.0 % VBG pH 7.37 (7.32-7.42) VBG pCO2 at Pat Temp 51 (42-55) mm/Hg VBG pO2 at Pat Temp 25 (25-40) mm/Hg VBG HCO3 29.5 H* (22-28) meq/L VBG O2 Sat (Tiffany) 46.9 L (95-100) VBG Base Excess 3.2 H (-2.0-2.0) VBG Hemoglobin 13.3 VBG Carboxyhemoglobin 2.4 (0.0-6.9) % T HGB POC Potassium 4.0 (3.5-5.1) Sodium (137-145) mmol/L Potassium (3.5-5.1) mmol/L Chloride (98-107) mmol/L Carbon Dioxide (22-30) mmol/L Anion Gap (5-15) MEQ/L BUN (7-17) mg/dL Creatinine (0.52-1.04) mg/dL Estimated GFR ML/MIN Glucose (74-106) mg/dL Calcium (8.4-10.2) mg/dL Total Bilirubin (0.2-1.3) mg/dL AST (14-36) U/L ALT (0-35) U/L Alkaline Phosphatase (38-126) U/L Troponin I < 0.012 (0.000-0.034) ng/mL Serum Total Protein (6.3-8.2) g/dL Albumin (3.5-5.0) g/dL 05/09/18 05/09/18 Range/Units 09:00 08:48 WBC 6.5 (4.0-10.5) K/mm3 RBC 4.04 L (4.1-5.4) M/mm3 Hgb 12.5 (12.0-16.0) gm/dl Hct 40.8 (35-47) % MCV 101.0 H (78-100) fl MCH 30.9 (26-32) pg MCHC 30.6 L (32-36) g/dl RDW 15.0 H (11.5-14.0) % Plt Count 378 (150-450) K/mm3 MPV 10.1 H (6-9.5) fl Gran % 71.6 H (36.0-66.0) % Eos # (Auto) 0.18 (0-0.5) Absolute Lymphs (auto) 1.03 (1.0-4.6) Absolute Monos (auto) 0.61 (0.0-1.3) Lymphocytes % 15.9 L (24.0-44.0) % Monocytes % 9.4 (0.0-12.0) % Eosinophils % 2.8 (0.00-5.0) % Basophils % 0.3 (0.0-0.4) % Absolute Granulocytes 4.64 (1.4-6.9) Basophils # 0.02 (0-0.4) PT (9.95-12.35) SECONDS INR (0.8-3.0) APTT (25.3-37.0) SECONDS D-Dimer (215-500) ng/mL pO2/FiO2 Ratio % VBG pH (7.32-7.42) VBG pCO2 at Pat Temp (42-55) mm/Hg VBG pO2 at Pat Temp (25-40) mm/Hg VBG HCO3 (22-28) meq/L VBG O2 Sat (Tiffany) (95-100) VBG Base Excess (-2.0-2.0) VBG Hemoglobin VBG Carboxyhemoglobin (0.0-6.9) % T HGB POC Potassium (3.5-5.1) Sodium 143 (137-145) mmol/L Potassium 3.9 (3.5-5.1) mmol/L Chloride 103 (98-107) mmol/L Carbon Dioxide 28 (22-30) mmol/L Anion Gap 15.8 H (5-15) MEQ/L BUN 14 (7-17) mg/dL Creatinine 0.69 (0.52-1.04) mg/dL Estimated GFR > 60.0 ML/MIN Glucose 124 H (74-106) mg/dL Calcium 9.5 (8.4-10.2) mg/dL Total Bilirubin 0.50 (0.2-1.3) mg/dL AST 16 (14-36) U/L ALT 15 (0-35) U/L Alkaline Phosphatase 125 (38-126) U/L Troponin I (0.000-0.034) ng/mL Serum Total Protein 7.8 (6.3-8.2) g/dL Albumin 4.7 (3.5-5.0) g/dL - Progress Progress: improved Air Movement: fair Progress Note: 05/09/18 11:29 67-year-old white female with history of angina, hyperlipidemia, high blood pressure, asthma, COPD arrives with complaint of shortness of breath for 2 days. Patient apparently not using her inhaler patient arrives with pulse ox of 85%. Patient's lungs are diminished. Patient is given DuoNeb treatment, albuterol treatments Solu-Medrol 125 IV remain short of breath. CT of the patient's chest is obtained negative for PE there is clearing of previous left upper lobe airspace disease with focal fibrosis and scarring no acute cardiopulmonary abnormalities there is stable pulmonary emphysema heavy arteriosclerotic disease, and completely visualize AAA noncalcified bilateral adrenal gland masses and evidence for old granulomatous disease. EKG sinus rhythm 97 bpm normal axis nonspecific ST-T segment abnormalities no acute changes from previous. Chest x-ray nonacute hyperinflated chest with chronic features Patient's chemistry was essentially normal troponin within normal limits Patient's CBC white blood cell 6.5 hemoglobin 12.5 hematocrit 40.5 Venous blood gases pH 7.37 PCO2 51 Patient was given IV normal saline at 100 mL per hour, Solu-Medrol 125 mg IV, Atrovent treatment, albuterol treatment. Her O2 sats did improve to 99% on 2 L nasal cannula. Case was discussed with Dr. Monty Hickman will place patient on observation. Begin Rocephin, Zithromax continue IV steroids and DuoNeb treatments. - Departure Time of Disposition: 11:33 Departure Disposition: Observation Clinical Impression: COPD with exacerbation, SOB (shortness of breath) Condition: Fair Critical Care Time: No Referrals: CHICO RAZA [Primary Care Provider] - Instructions: Chronic Obstructive Pulmonary Disease
[2018-05-09 09:04] LABS: VBG BASE EXCESS 3.2 (-2.0-2.0); VBG CARBOXYHEMOGLOBIN 2.4 % T HGB (0.0-6.9); VBG HCO3- 29.5 meq/L (22-28); VBG HEMOGLOBIN 13.3; VBG O2 SATURATION 46.9 (95-100); VBG pH 7.37 (7.32-7.42)
--- NOTE | 2018-05-09 09:05 | XRAY ---
Indication: Cough and short of breath. Comparison: April 06, 2018. Portable chest again hyperinflated. Previous left upper lobe infiltrate has cleared with residual scarring. Remaining heart and lungs unremarkable. Again scattered vascular calcifications. Bony thorax intact again with mild osteopenia, degenerative changes, and bilateral calcified breast implants. Impression: Nonacute hyperinflated chest with chronic features.
[2018-05-09 09:13] LABS: BASOPHIL % 0.3 % (0.0-0.4); Basophil (Absolute #) 0.02 (0-0.4); Eosinophil % 2.8 % (0.00-5.0); Eosinophil (Absolute #) 0.18 (0-0.5); Granulocyte Absolute (ANC) 4.64 (1.4-6.9); Granulocytes % 71.6 % (36.0-66.0); Hematocrit 40.8 % (35-47); Hemoglobin 12.5 gm/dl (12.0-16.0); Lymphocyte (Absolute #) 1.03 (1.0-4.6); Lymphocytes % 15.9 % (24.0-44.0); Mean Corpuscular Hemoglobin 30.9 pg (26-32); Mean Corpuscular Hgb Concent. 30.6 g/dl (32-36); Mean Platelet Volume 10.1 fl (6-9.5); Monocyte (Absolute #) 0.61 (0.0-1.3); Monocytes % 9.4 % (0.0-12.0); Platelet Count 378 K/mm3 (150-450); Red Blood Count 4.04 M/mm3 (4.1-5.4); White Blood Count 6.5 K/mm3 (4.0-10.5)
[2018-05-09 09:26] LABS: ALBUMIN 4.7 g/dL (3.5-5.0); ALKALINE PHOSPHATASE 125 U/L (38-126); ANION GAP 15.8 MEQ/L (5-15); BLOOD UREA NITROGEN 14 mg/dL (7-17); CHLORIDE 103 mmol/L (98-107); Calcium 9.5 mg/dL (8.4-10.2); Carbon Dioxide 28 mmol/L (22-30); Creatinine 1 0.69 mg/dL (0.52-1.04); Glucose 124 mg/dL (74-106); Potassium 3.9 mmol/L (3.5-5.1); SGOT/AST 16 U/L (14-36); SGPT/ALT 15 U/L (0-35); SODIUM 143 mmol/L (137-145); Total Protein 7.8 g/dL (6.3-8.2)
[2018-05-09] MEDS ORDERED: PROVENTIL 2.5 MG/3 ML NEB IH ONE ×5 (09:34→16:21)
[2018-05-09 09:35] LABS: INR 1.07 (0.8-3.0)
[2018-05-09 09:38] LABS: PTT 26.8 SECONDS (25.3-37.0)
--- NOTE | 2018-05-09 10:59 | XRAY ---
Indication: Chest pain, short of breath, and elevated d-dimer 799. COPD. Multiple contiguous axial images obtained through the chest using 80 cc Isovue 370 contrast and PE protocol. Comparison: April 06, 2018. There is satisfactory opacification of the pulmonary arteries to include the lobar and segmental branches. Again no filling defect or pulmonary embolus. Heart is not enlarged. Aorta remains heavily calcified without aneurysm/dissection. Stable chunky mediastinal lymph nodes. No pathologic mediastinal/hilar lymphadenopathy. Examination of the lung parenchyma again demonstrates diffuse pulmonary emphysema and scattered fibrosis/scarring. There has been clearing of the previous left upper lobe airspace opacity with now fibrosis/scarring. Stable right middle lobe calcified granuloma. No new infiltrate or effusion. Bony thorax intact again with mild degenerative changes throughout the spine. Stable bilateral calcified breast implants. Limited upper abdomen again demonstrates partially visualized infrarenal AAA measuring today 3.7 x 3.8 cm. Also stable noncalcified bilateral adrenal masses. Impression: 1. Again negative for pulmonary embolus. 2. Clearing of previous left upper lobe airspace disease with now focal fibrosis/scarring. 3. No acute cardiopulmonary abnormalities. 4. Stable pulmonary emphysema, heavy arteriosclerotic disease, incompletely visualized AAA, noncalcified bilateral adrenal gland masses, and evidence for old granulomatous disease. CT DI 10.00
[2018-05-09] MEDS ORDERED: ROCEPHIN 1 Gm-D5w 50 ml Bag** 1 G/50 ML IVPB IV STA (11:34)
[2018-05-09] MEDS ORDERED: ROCEPHIN 1 Gm-D5w 50 ml Bag** 1 G/50 ML IVPB IV ONE (11:43)
[2018-05-09] MEDS ORDERED: DUONEB 0.5-3 MG/3 ml Neb IH PRN (13:53)
[2018-05-09] MEDS ORDERED: Zithromax 500 MG/ 250 ML NaCl Premix 500 MG/250 ML IVPB IV SCH (14:00)
[2018-05-09] MEDS ORDERED: PROVENTIL 2.5 MG/3 ML NEB IH PRN (16:19)
[2018-05-09] MEDS ORDERED: solu-MEDROL 125 MG IV SCH (18:00)
--- NOTE | 2018-05-09 18:41 | PCM.HP ---
History of Present Illness - Chief Complaint Chief Complaint: Shortness of Breath, COPD Exacerbation Date: 05/09/18 History of Present Illness: is a 67 year old female. with chronic tobacco abuse who developed worsening shortness of breath and wheezing for the last 4 days. She has been wearing her oxygen that she uses intermittently for the last 4 days continuously. She denies chest pain or swelling. She has been using her inhalers with no relief. She has been having increased shortness of breath since her carotid endarterectomy in February. - Review of Systems Constitutional: No Fever, No Chills Eyes: No Symptoms Ears, Nose, & Throat: No Symptoms Respiratory: Short Of Breath, Wheezing, No Cough Cardiac: No Chest Pain, No Edema, No Syncope Abdominal/Gastrointestinal: No Abdominal Pain, No Nausea, No Vomiting, No Diarrhea Genitourinary Symptoms: No Dysuria Musculoskeletal: No Back Pain, No Neck Pain Skin: No Rash Neurological: No Dizziness, No Focal Weakness, No Sensory Changes Psychological: No Symptoms Endocrine: No Symptoms Hematologic/Lymphatic: No Symptoms Immunological/Allergic: No Symptoms Medications & Allergies Home Medications: Home Medication List Amlodipine Besylate 10 mg [Norvasc 10 MG] 20 mg PO HS 08/20/16 [History Confirmed 05/09/18] Citalopram Hydrobromide 20 mg* [ceLEXa 20 MG] 20 mg PO DAILY 08/20/16 [ History Confirmed 05/09/18] Clopidogrel Bisulfate 75 mg [PLAVIX 75 MG Tablet] 75 mg PO DAILY 08/20/16 [History Confirmed 05/09/18] Levothyroxine Sodium 75 Mcg [Synthroid 75 Mcg] 75 mcg PO DAILY 08/20/16 [ History Confirmed 05/09/18] Potassium Chloride 10 Meq Tab* [Klor Con 10 MEQ] 10 meq PO HS 08/20/16 [ History Confirmed 05/09/18] Albuterol 2.5 mg/3 ml Neb [Proventil 2.5 mg/3 ml Neb] 2.5 mg IH QID PRN [History Confirmed 05/09/18] Rosuvastatin Calcium [Crestor] 40 mg PO DAILY 09/28/16 [History Confirmed ] Fluticasone/Vilanterol [Breo Ellipta 200-25 Mcg INH] 1 inh PO DAILY 04/06/18 [ History Confirmed 05/09/18] Loratadine 10 mg [Claritin 10 mg] 10 mg PO DAILY 04/06/18 [History Confirmed 05/09/18] PANTOPRAZOLE 40 mg Tablet [Protonix 40MG Tablet] 40 mg PO QAM 04/06/18 [ History Confirmed 05/09/18] Allergies/Adverse Reactions: Allergies Allergy/AdvReac Type Severity Reaction Status Date / Time No Known Drug Allergies Allergy Verified 05/09/18 08:57 - Past Medical History Past Medical History: Yes Neurological History: No Pertinent History ENT History: Other Cardiac History: Aneurysm, High Cholesterol, Hypertension Respiratory History: COPD Endocrine Medical History: Hypothyroidism Musculoskelatal History: No Pertinent History GI Medical History: No Pertinent History History: No Pertinent History Pyscho-Social History: No Pertinent History Reproductive Disorders: No Pertinent History Comment: patient had injury to left eye causing patient to only see out of left side of eye - Female History Hx Last Menstrual Period: post Are you now?: No - Past Surgical History Past Surgical History: Yes Neuro Surgical History: No Pertinent History Cardiac History: Angioplasty, Cardiac Catheterization Respiratory Surgery: No Pertinent History GI Surgical History: No Pertinent History Genitourinary Surgical Hx: No Pertinent History Musculskeletal Surgical Hx: No Pertinent History Female Surgical History: Hysterectomy Other Surgical History: femoral bypass. bilateral carotids - Social History Smoking Status: Former smoker How long have you smoked: 40years Exposure to second hand smoke: No Alcohol: None Drug Use: none - Physical Exam Vital Signs: Vital Signs - 24 hr Temp Pulse Resp BP Pulse Ox 05/09/18 17:17 97.4 F 96 H 22 150/68 96 05/09/18 16:29 85 32 H 96 05/09/18 15:00 88 30 H 97 05/09/18 14:03 97.7 F 94 H 26 H 155/71 96 05/09/18 13:39 97.7 F 94 H 26 H 155/71 96 05/09/18 13:30 87 30 H 156/80 99 05/09/18 13:18 83 24 100 05/09/18 11:38 87 30 H 158/72 99 05/09/18 11:33 95 05/09/18 09:46 85 34 H 100 05/09/18 09:05 90 34 H 150/86 98 05/09/18 08:57 96 H 38 H 96 05/09/18 08:48 100 05/09/18 08:47 98.4 F 98 H 40 H 193/89 95 Oxygen-Last 24 hours O2 Percentage 2 Liters = 28% O2 Percentage 2 Liters = 28% O2 Percentage 2 Liters = 28% O2 Percentage 2 Liters = 28% O2 Percentage 2 Liters = 28% O2 Percentage 2 Liters = 28% General Appearance: no apparent distress, alert, anxiety, thin Neurologic Exam: alert, oriented x 3, cooperative, normal mood/affect, nml cerebellar function, nml station & gait, sensation nml, No motor deficits Eye Exam: PERRL/EOMI, eyes nml inspection Ears, Nose, Throat Exam: normal ENT inspection, pharynx normal, moist mucous membranes Neck Exam: normal inspection, non-tender, supple, full range of motion Respiratory Exam: respiratory distress, prolonged expirations (pursed lip breathing with tachypnea), wheezing Cardiovascular Exam: regular rate/rhythm, normal heart sounds, normal peripheral pulses Gastrointestinal/Abdomen Exam: soft, normal bowel sounds, No tenderness, No mass Back Exam: normal inspection, normal range of motion, No CVA tenderness, No vertebral tenderness Extremity Exam: normal inspection, normal range of motion, pelvis stable Skin Exam: normal color, warm, dry, No rash Lymphatic Exam: No adenopathy Results - Labs Lab/Micro Results: Lab Results-Last 24 Hours 05/09/18 05/09/18 05/09/18 Range/Units 08:48 09:00 09:00 WBC 6.5 (4.0-10.5) K/mm3 RBC 4.04 L (4.1-5.4) M/mm3 Hgb 12.5 (12.0-16.0) gm/dl Hct 40.8 (35-47) % MCV 101.0 H (78-100) fl MCH 30.9 (26-32) pg MCHC 30.6 L (32-36) g/dl RDW 15.0 H (11.5-14.0) % Plt Count 378 (150-450) K/mm3 MPV 10.1 H (6-9.5) fl Gran % 71.6 H (36.0-66.0) % Eos # (Auto) 0.18 (0-0.5) Absolute Lymphs (auto) 1.03 (1.0-4.6) Absolute Monos (auto) 0.61 (0.0-1.3) Lymphocytes % 15.9 L (24.0-44.0) % Monocytes % 9.4 (0.0-12.0) % Eosinophils % 2.8 (0.00-5.0) % Basophils % 0.3 (0.0-0.4) % Absolute Granulocytes 4.64 (1.4-6.9) Basophils # 0.02 (0-0.4) PT (9.95-12.35) SECONDS INR (0.8-3.0) APTT (25.3-37.0) SECONDS D-Dimer (215-500) ng/mL pO2/FiO2 Ratio 28.0 % VBG pH 7.37 (7.32-7.42) VBG pCO2 at Pat Temp 51 (42-55) mm/Hg VBG pO2 at Pat Temp 25 (25-40) mm/Hg VBG HCO3 29.5 H* (22-28) meq/L VBG O2 Sat (Tiffany) 46.9 L (95-100) VBG Base Excess 3.2 H (-2.0-2.0) VBG Hemoglobin 13.3 VBG Carboxyhemoglobin 2.4 (0.0-6.9) % T HGB POC Potassium 4.0 (3.5-5.1) Sodium 143 (137-145) mmol/L Potassium 3.9 (3.5-5.1) mmol/L Chloride 103 (98-107) mmol/L Carbon Dioxide 28 (22-30) mmol/L Anion Gap 15.8 H (5-15) MEQ/L BUN 14 (7-17) mg/dL Creatinine 0.69 (0.52-1.04) mg/dL Estimated GFR > 60.0 ML/MIN Glucose 124 H (74-106) mg/dL Calcium 9.5 (8.4-10.2) mg/dL Total Bilirubin 0.50 (0.2-1.3) mg/dL AST 16 (14-36) U/L ALT 15 (0-35) U/L Alkaline Phosphatase 125 (38-126) U/L Troponin I (0.000-0.034) ng/mL Serum Total Protein 7.8 (6.3-8.2) g/dL Albumin 4.7 (3.5-5.0) g/dL 05/09/18 05/09/18 05/09/18 Range/Units 09:00 09:00 12:11 WBC (4.0-10.5) K/mm3 RBC (4.1-5.4) M/mm3 Hgb (12.0-16.0) gm/dl Hct (35-47) % MCV (78-100) fl MCH (26-32) pg MCHC (32-36) g/dl RDW (11.5-14.0) % Plt Count (150-450) K/mm3 MPV (6-9.5) fl Gran % (36.0-66.0) % Eos # (Auto) (0-0.5) Absolute Lymphs (auto) (1.0-4.6) Absolute Monos (auto) (0.0-1.3) Lymphocytes % (24.0-44.0) % Monocytes % (0.0-12.0) % Eosinophils % (0.00-5.0) % Basophils % (0.0-0.4) % Absolute Granulocytes (1.4-6.9) Basophils # (0-0.4) PT 12.4 H (9.95-12.35) SECONDS INR 1.07 (0.8-3.0) APTT 26.8 (25.3-37.0) SECONDS D-Dimer 799 H* (215-500) ng/mL pO2/FiO2 Ratio % VBG pH (7.32-7.42) VBG pCO2 at Pat Temp (42-55) mm/Hg VBG pO2 at Pat Temp (25-40) mm/Hg VBG HCO3 (22-28) meq/L VBG O2 Sat (Tiffany) (95-100) VBG Base Excess (-2.0-2.0) VBG Hemoglobin VBG Carboxyhemoglobin (0.0-6.9) % T HGB POC Potassium (3.5-5.1) Sodium (137-145) mmol/L Potassium (3.5-5.1) mmol/L Chloride (98-107) mmol/L Carbon Dioxide (22-30) mmol/L Anion Gap (5-15) MEQ/L BUN (7-17) mg/dL Creatinine (0.52-1.04) mg/dL Estimated GFR ML/MIN Glucose (74-106) mg/dL Calcium (8.4-10.2) mg/dL Total Bilirubin (0.2-1.3) mg/dL AST (14-36) U/L ALT (0-35) U/L Alkaline Phosphatase (38-126) U/L Troponin I < 0.012 < 0.012 (0.000-0.034) ng/mL Serum Total Protein (6.3-8.2) g/dL Albumin (3.5-5.0) g/dL 05/09/18 Range/Units 15:00 WBC (4.0-10.5) K/mm3 RBC (4.1-5.4) M/mm3 Hgb (12.0-16.0) gm/dl Hct (35-47) % MCV (78-100) fl MCH (26-32) pg MCHC (32-36) g/dl RDW (11.5-14.0) % Plt Count (150-450) K/mm3 MPV (6-9.5) fl Gran % (36.0-66.0) % Eos # (Auto) (0-0.5) Absolute Lymphs (auto) (1.0-4.6) Absolute Monos (auto) (0.0-1.3) Lymphocytes % (24.0-44.0) % Monocytes % (0.0-12.0) % Eosinophils % (0.00-5.0) % Basophils % (0.0-0.4) % Absolute Granulocytes (1.4-6.9) Basophils # (0-0.4) PT (9.95-12.35) SECONDS INR (0.8-3.0) APTT (25.3-37.0) SECONDS D-Dimer (215-500) ng/mL pO2/FiO2 Ratio % VBG pH (7.32-7.42) VBG pCO2 at Pat Temp (42-55) mm/Hg VBG pO2 at Pat Temp (25-40) mm/Hg VBG HCO3 (22-28) meq/L VBG O2 Sat (Tiffany) (95-100) VBG Base Excess (-2.0-2.0) VBG Hemoglobin VBG Carboxyhemoglobin (0.0-6.9) % T HGB POC Potassium (3.5-5.1) Sodium (137-145) mmol/L Potassium (3.5-5.1) mmol/L Chloride (98-107) mmol/L Carbon Dioxide (22-30) mmol/L Anion Gap (5-15) MEQ/L BUN (7-17) mg/dL Creatinine (0.52-1.04) mg/dL Estimated GFR ML/MIN Glucose (74-106) mg/dL Calcium (8.4-10.2) mg/dL Total Bilirubin (0.2-1.3) mg/dL AST (14-36) U/L ALT (0-35) U/L Alkaline Phosphatase (38-126) U/L Troponin I < 0.012 (0.000-0.034) ng/mL Serum Total Protein (6.3-8.2) g/dL Albumin (3.5-5.0) g/dL - Radiology Impressions Radiology Exams & Impressions: Radiology Procedures Category Date Time Status CHEST 1 VIEW (PORTABLE) Stat Exams 05/09/18 08:48 Completed CHEST WITH CONTRAST [CT] Stat Exams 05/09/18 09:52 Completed - Other Procedures and Tests Respiratory Therapy 05/09/18 13:53 Oxygen NASAL CANNULA 2 lpm 05/09/18 14:59 Respiratory Therapy Assessment DAILY 05/09/18 16:31 Peak Expiratory Flow Rate ONCE Assessment/Plan (1) COPD with exacerbation Current Visit: Yes Status: Acute Onset Date: ~05/09/18 Assessment & Plan: continue the steroids she has received 125 mg bolus and is very anxious currently with shaking and racing thoughts will hold dose tonight unless worsening respiratory status continue rocephin will stop azithromycin with negative chest ct and its QT prolongation with her celexa continue nebs and oxygen lock iv fluids Code(s): J44.1 - CHRONIC OBSTRUCTIVE PULMONARY DISEASE W (ACUTE) EXACERBATION (2) Acute on chronic respiratory failure with hypoxemia Current Visit: Yes Status: Acute Code(s): J96.21 - ACUTE AND CHRONIC RESPIRATORY FAILURE WITH HYPOXIA (3) Peripheral arteriosclerosis Current Visit: Yes Status: Chronic Code(s): I70.209 - UNSP ATHSCL [place] ARTERIES OF EXTREMITIES, UNSP EXTREMITY (4) Aortic aneurysm Current Visit: Yes Status: Chronic Code(s): I71.9 - AORTIC ANEURYSM OF UNSPECIFIED SITE, WITHOUT RUPTURE (5) Iron deficiency Current Visit: Yes Status: Chronic Code(s): E61.1 - IRON DEFICIENCY
[2018-05-09] MEDS: DUONEB 0.5-3 MG/3 ml Neb IH SCH (18:47)
[2018-05-09] MEDS: Advair Hfa 115/21 Common canister IH SCH (18:47)
[2018-05-09] MEDS: Ativan 2 MG/1 ML VIAL IV PRN (20:41)
[2018-05-09] MEDS: Klor Con 10 MEQ PO SCH (21:53)
[2018-05-09] MEDS ORDERED: NORVASC 5 MG PO SCH (22:00)
[2018-05-09] MEDS ORDERED: AMLODIPINE BESYLATE PO SCH (22:00)
[2018-05-10] MEDS: Ativan 2 MG/1 ML VIAL IV PRN ×3 (01:19→22:09)
[2018-05-10] MEDS: DUONEB 0.5-3 MG/3 ml Neb IH SCH ×7 (05:45→23:27)
[2018-05-10 06:48] LABS: Hematocrit 33.9 % (35-47); Hemoglobin 10.4 gm/dl (12.0-16.0); Mean Cell Volume 100.3 fl (78-100); Mean Corpuscular Hgb Concent. 30.7 g/dl (32-36); Mean Platelet Volume 10.4 fl (6-9.5); Platelet Count 326 K/mm3 (150-450); Red Blood Count 3.38 M/mm3 (4.1-5.4); White Blood Count 7.5 K/mm3 (4.0-10.5)
[2018-05-10] MEDS: Advair Hfa 115/21 Common canister IH SCH ×2 (06:49→19:16)
[2018-05-10 06:58] LABS: Mean Corpuscular Hemoglobin 30.7 pg (26-32)
[2018-05-10 07:17] LABS: ALKALINE PHOSPHATASE 84 U/L (38-126); ANION GAP 12.5 MEQ/L (5-15); BLOOD UREA NITROGEN 17 mg/dL (7-17); CHLORIDE 107 mmol/L (98-107); Calcium 9.1 mg/dL (8.4-10.2); Carbon Dioxide 24 mmol/L (22-30); Creatinine 1 0.59 mg/dL (0.52-1.04); Glucose 171 mg/dL (74-106); Potassium 3.5 mmol/L (3.5-5.1); SGOT/AST 13 U/L (14-36); SGPT/ALT 17 U/L (0-35); SODIUM 140 mmol/L (137-145); Total Protein 6.6 g/dL (6.3-8.2)
[2018-05-10 07:26] LABS: BAND 10 % (0.0-2.0); Lymphocytes 4 % (24-44); Macrocytosis 1+; Monocyte 1 % (0.0-12.0); Neutrophils 85 % (36.0-66.0); Platelet Estimate NORMAL (NORMAL); Total Cells Counted 100
[2018-05-10 07:32] LABS: Granulocyte Absolute (ANC) 7.1 (1.4-6.9)
--- NOTE | 2018-05-10 08:35 | PCM.NOTE ---
Date and Time: 05/10/18834 Subjective Assessment: very short of breath with minimal exertion tired anxious she is worried about why she is so weak. Objective Exam General Appearance: mild distress, alert, anxiety Neurologic Exam: alert, oriented x 3, cooperative, normal mood/affect, sensation nml, other (essential tremors), No motor deficits Skin Exam: normal color, warm, dry Eye Exam: PERRL, EOMI, eyes nml inspection Ears, Nose, Throat Exam: normal ENT inspection, pharynx normal, moist mucous membranes Neck Exam: normal inspection, non-tender, supple, full range of motion Respiratory Exam: prolonged expirations, wheezing, other (pursed lip breathing) Cardiovascular Exam: regular rate/rhythm, normal heart sounds Gastrointestinal/Abdomen Exam: soft, No tenderness, No mass Extremity Exam: normal inspection, normal range of motion Back Exam: normal inspection, normal range of motion, No CVA tenderness, No vertebral tenderness Pelvic Exam: deferred Rectal Exam: deferred OBJECTIVE DATA Vital Signs: Vital Signs - 24 hr Temp Pulse Resp BP Pulse Ox 05/10/18 07:49 97.8 F 96 H 21 136/63 97 05/10/18 06:55 96 H 26 H 97 05/10/18 04:00 98.0 F 98 H 23 111/57 98 05/10/18 00:00 98.0 F 98 H 20 121/57 97 05/09/18 23:00 82 98 05/09/18 20:38 98.1 F 90 18 113/53 96 05/09/18 20:00 18 05/09/18 18:48 89 30 H 99 05/09/18 17:17 97.4 F 96 H 22 150/68 96 05/09/18 16:29 85 32 H 96 05/09/18 15:00 88 30 H 97 05/09/18 14:03 97.7 F 94 H 26 H 155/71 96 05/09/18 13:39 97.7 F 94 H 26 H 155/71 96 05/09/18 13:30 87 30 H 156/80 99 05/09/18 13:18 83 24 100 05/09/18 11:38 87 30 H 158/72 99 05/09/18 11:33 95 05/09/18 09:46 85 34 H 100 05/09/18 09:05 90 34 H 150/86 98 12/20/18 08:57 96 H 38 H 96 05/09/18 08:48 100 05/09/18 08:47 98.4 F 98 H 40 H 193/89 95 Oxygen-Last 24 hours O2 Percentage 2 Liters = 28% O2 Percentage 2 Liters = 28% O2 Percentage 2 Liters = 28% O2 Percentage 2 Liters = 28% O2 Percentage 2 Liters = 28% O2 Percentage 2 Liters = 28% O2 Percentage 2 Liters = 28% O2 Percentage 2 Liters = 28% O2 Percentage 2 Liters = 28% O2 Percentage 2 Liters = 28% Pain Assessment - Last Documented Pain Intensity 0 Pain Scale Used FLACC Intake and Output: Intake & Output 05/07/18 05/08/18 05/09/18 05/10/18 11:59 11:59 11:59 11:59 Intake Total 1454 Output Total 300 Balance 1154 Weight 58.967 kg 51.9 kg Lab Results: Lab Results-Last 24 Hours 05/09/18 05/09/18 05/09/18 Range/Units 08:48 09:00 09:00 WBC 6.5 (4.0-10.5) K/mm3 RBC 4.04 L (4.1-5.4) M/mm3 Hgb 12.5 (12.0-16.0) gm/dl Hct 40.8 (35-47) % MCV 101.0 H (78-100) fl MCH 30.9 (26-32) pg MCHC 30.6 L (32-36) g/dl RDW 15.0 H (11.5-14.0) % Plt Count 378 (150-450) K/mm3 MPV 10.1 H (6-9.5) fl Gran % 71.6 H (36.0-66.0) % Eos # (Auto) 0.18 (0-0.5) Absolute Lymphs (auto) 1.03 (1.0-4.6) Absolute Monos (auto) 0.61 (0.0-1.3) Lymphocytes % 15.9 L (24.0-44.0) % Monocytes % 9.4 (0.0-12.0) % Eosinophils % 2.8 (0.00-5.0) % Basophils % 0.3 (0.0-0.4) % Absolute Granulocytes 4.64 (1.4-6.9) Segmented Neutrophils (36.0-66.0) % Band Neutrophils (0.0-2.0) % Lymphocytes (Manual) (24-44) % Monocytes (Manual) (0.0-12.0) % Basophils # 0.02 (0-0.4) Platelet Estimate (NORMAL) RBC Morphology Macrocytosis PT (9.95-12.35) SECONDS INR (0.8-3.0) APTT (25.3-37.0) SECONDS D-Dimer (215-500) ng/mL pO2/FiO2 Ratio 28.0 % VBG pH 7.37 (7.32-7.42) VBG pCO2 at Pat Temp 51 (42-55) mm/Hg VBG pO2 at Pat Temp 25 (25-40) mm/Hg VBG HCO3 29.5 H* (22-28) meq/L VBG O2 Sat (Tiffany) 46.9 L (95-100) VBG Base Excess 3.2 H (-2.0-2.0) VBG Hemoglobin 13.3 VBG Carboxyhemoglobin 2.4 (0.0-6.9) % T HGB POC Potassium 4.0 (3.5-5.1) Sodium 143 (137-145) mmol/L Potassium 3.9 (3.5-5.1) mmol/L Chloride 103 (98-107) mmol/L Carbon Dioxide 28 (22-30) mmol/L Anion Gap 15.8 H (5-15) MEQ/L BUN 14 (7-17) mg/dL Creatinine 0.69 (0.52-1.04) mg/dL Estimated GFR > 60.0 ML/MIN Glucose 124 H (74-106) mg/dL Calcium 9.5 (8.4-10.2) mg/dL Total Bilirubin 0.50 (0.2-1.3) mg/dL AST 16 (14-36) U/L ALT 15 (0-35) U/L Alkaline Phosphatase 125 (38-126) U/L Troponin I (0.000-0.034) ng/mL Serum Total Protein 7.8 (6.3-8.2) g/dL Albumin 4.7 (3.5-5.0) g/dL TSH 3rd Generation (0.47-4.68) mIU/L 05/09/18 05/09/18 05/09/18 Range/Units 09:00 09:00 12:11 WBC (4.0-10.5) K/mm3 RBC (4.1-5.4) M/mm3 Hgb (12.0-16.0) gm/dl Hct (35-47) % MCV (78-100) fl MCH (26-32) pg MCHC (32-36) g/dl RDW (11.5-14.0) % Plt Count (150-450) K/mm3 MPV (6-9.5) fl Gran % (36.0-66.0) % Eos # (Auto) (0-0.5) Absolute Lymphs (auto) (1.0-4.6) Absolute Monos (auto) (0.0-1.3) Lymphocytes % (24.0-44.0) % Monocytes % (0.0-12.0) % Eosinophils % (0.00-5.0) % Basophils % (0.0-0.4) % Absolute Granulocytes (1.4-6.9) Segmented Neutrophils (36.0-66.0) % Band Neutrophils (0.0-2.0) % Lymphocytes (Manual) (24-44) % Monocytes (Manual) (0.0-12.0) % Basophils # (0-0.4) Platelet Estimate (NORMAL) RBC Morphology Macrocytosis PT 12.4 H (9.95-12.35) SECONDS INR 1.07 (0.8-3.0) APTT 26.8 (25.3-37.0) SECONDS D-Dimer 799 H* (215-500) ng/mL pO2/FiO2 Ratio % VBG pH (7.32-7.42) VBG pCO2 at Pat Temp (42-55) mm/Hg VBG pO2 at Pat Temp (25-40) mm/Hg VBG HCO3 (22-28) meq/L VBG O2 Sat (Tiffany) (95-100) VBG Base Excess (-2.0-2.0) VBG Hemoglobin VBG Carboxyhemoglobin (0.0-6.9) % T HGB POC Potassium (3.5-5.1) Sodium (137-145) mmol/L Potassium (3.5-5.1) mmol/L Chloride (98-107) mmol/L Carbon Dioxide (22-30) mmol/L Anion Gap (5-15) MEQ/L BUN (7-17) mg/dL Creatinine (0.52-1.04) mg/dL Estimated GFR ML/MIN Glucose (74-106) mg/dL Calcium (8.4-10.2) mg/dL Total Bilirubin (0.2-1.3) mg/dL AST (14-36) U/L ALT (0-35) U/L Alkaline Phosphatase (38-126) U/L Troponin I < 0.012 < 0.012 (0.000-0.034) ng/mL Serum Total Protein (6.3-8.2) g/dL Albumin (3.5-5.0) g/dL TSH 3rd Generation (0.47-4.68) mIU/L 05/09/18 05/10/18 05/10/18 Range/Units 15:00 05:54 05:54 WBC 7.5 (4.0-10.5) K/mm3 RBC 3.38 L (4.1-5.4) M/mm3 Hgb 10.4 L (12.0-16.0) gm/dl Hct 33.9 L (35-47) % MCV 100.3 H (78-100) fl MCH 30.7 (26-32) pg MCHC 30.7 L (32-36) g/dl RDW 15.0 H (11.5-14.0) % Plt Count 326 (150-450) K/mm3 MPV 10.4 H (6-9.5) fl Gran % (36.0-66.0) % Eos # (Auto) (0-0.5) Absolute Lymphs (auto) (1.0-4.6) Absolute Monos (auto) (0.0-1.3) Lymphocytes % (24.0-44.0) % Monocytes % (0.0-12.0) % Eosinophils % (0.00-5.0) % Basophils % (0.0-0.4) % Absolute Granulocytes 7.1 H (1.4-6.9) Segmented Neutrophils 85 H (36.0-66.0) % Band Neutrophils 10 H (0.0-2.0) % Lymphocytes (Manual) 4 L (24-44) % Monocytes (Manual) 1 (0.0-12.0) % Basophils # (0-0.4) Platelet Estimate NORMAL (NORMAL) RBC Morphology ABNORMAL Macrocytosis 1+ PT (9.95-12.35) SECONDS INR (0.8-3.0) APTT (25.3-37.0) SECONDS D-Dimer (215-500) ng/mL pO2/FiO2 Ratio % VBG pH (7.32-7.42) VBG pCO2 at Pat Temp (42-55) mm/Hg VBG pO2 at Pat Temp (25-40) mm/Hg VBG HCO3 (22-28) meq/L VBG O2 Sat (Tiffany) (95-100) VBG Base Excess (-2.0-2.0) VBG Hemoglobin VBG Carboxyhemoglobin (0.0-6.9) % T HGB POC Potassium (3.5-5.1) Sodium 140 (137-145) mmol/L Potassium 3.5 (3.5-5.1) mmol/L Chloride 107 (98-107) mmol/L Carbon Dioxide 24 (22-30) mmol/L Anion Gap 12.5 (5-15) MEQ/L BUN 17 (7-17) mg/dL Creatinine 0.59 (0.52-1.04) mg/dL Estimated GFR > 60.0 ML/MIN Glucose 171 H (74-106) mg/dL Calcium 9.1 (8.4-10.2) mg/dL Total Bilirubin 0.20 (0.2-1.3) mg/dL AST 13 L (14-36) U/L ALT 17 (0-35) U/L Alkaline Phosphatase 84 (38-126) U/L Troponin I < 0.012 (0.000-0.034) ng/mL Serum Total Protein 6.6 (6.3-8.2) g/dL Albumin 4.0 (3.5-5.0) g/dL TSH 3rd Generation (0.47-4.68) mIU/L 05/10/18 Range/Units 05:54 WBC (4.0-10.5) K/mm3 RBC (4.1-5.4) M/mm3 Hgb (12.0-16.0) gm/dl Hct (35-47) % MCV (78-100) fl MCH (26-32) pg MCHC (32-36) g/dl RDW (11.5-14.0) % Plt Count (150-450) K/mm3 MPV (6-9.5) fl Gran % (36.0-66.0) % Eos # (Auto) (0-0.5) Absolute Lymphs (auto) (1.0-4.6) Absolute Monos (auto) (0.0-1.3) Lymphocytes % (24.0-44.0) % Monocytes % (0.0-12.0) % Eosinophils % (0.00-5.0) % Basophils % (0.0-0.4) % Absolute Granulocytes (1.4-6.9) Segmented Neutrophils (36.0-66.0) % Band Neutrophils (0.0-2.0) % Lymphocytes (Manual) (24-44) % Monocytes (Manual) (0.0-12.0) % Basophils # (0-0.4) Platelet Estimate (NORMAL) RBC Morphology Macrocytosis PT (9.95-12.35) SECONDS INR (0.8-3.0) APTT (25.3-37.0) SECONDS D-Dimer (215-500) ng/mL pO2/FiO2 Ratio % VBG pH (7.32-7.42) VBG pCO2 at Pat Temp (42-55) mm/Hg VBG pO2 at Pat Temp (25-40) mm/Hg VBG HCO3 (22-28) meq/L VBG O2 Sat (Tiffany) (95-100) VBG Base Excess (-2.0-2.0) VBG Hemoglobin VBG Carboxyhemoglobin (0.0-6.9) % T HGB POC Potassium (3.5-5.1) Sodium (137-145) mmol/L Potassium (3.5-5.1) mmol/L Chloride (98-107) mmol/L Carbon Dioxide (22-30) mmol/L Anion Gap (5-15) MEQ/L BUN (7-17) mg/dL Creatinine (0.52-1.04) mg/dL Estimated GFR ML/MIN Glucose (74-106) mg/dL Calcium (8.4-10.2) mg/dL Total Bilirubin (0.2-1.3) mg/dL AST (14-36) U/L ALT (0-35) U/L Alkaline Phosphatase (38-126) U/L Troponin I (0.000-0.034) ng/mL Serum Total Protein (6.3-8.2) g/dL Albumin (3.5-5.0) g/dL TSH 3rd Generation 1.200 (0.47-4.68) mIU/L Radiology Exams: Radiology Procedures Category Date Time Status CHEST 1 VIEW (PORTABLE) Stat Exams 05/09/18 08:48 Completed CHEST WITH CONTRAST [CT] Stat Exams 05/09/18 09:52 Completed Multi-Disciplinary Progress Notes: Multi-Disciplinary Progress Notes 05/09/18 17:30 Pharmacy Note by Angelo Painter Please be aware of possible drug interaction with Celexa and Zithromax. May prolong QT interval. Initialized on 05/09/18 17:30 - END OF NOTE Assessment/Plan (1) COPD with exacerbation Current Visit: Yes Status: Acute Onset Date: ~05/09/18 Assessment & Plan: iv steroids nebs ativan prn anxiety with the increseased steroids increase activity as tolerated continue supplemental oxygen. Code(s): J44.1 - CHRONIC OBSTRUCTIVE PULMONARY DISEASE W (ACUTE) EXACERBATION (2) Acute on chronic respiratory failure with hypoxemia Current Visit: Yes Status: Acute Onset Date: ~05/10/18 Code(s): J96.21 - ACUTE AND CHRONIC RESPIRATORY FAILURE WITH HYPOXIA (3) Peripheral arteriosclerosis Current Visit: Yes Status: Chronic Onset Date: ~05/10/18 Code(s): I70.209 - UNSP ATHSCL [place] ARTERIES OF EXTREMITIES, UNSP EXTREMITY (4) Aortic aneurysm Current Visit: Yes Status: Chronic Onset Date: ~05/09/18 Code(s): I71.9 - AORTIC ANEURYSM OF UNSPECIFIED SITE, WITHOUT RUPTURE (5) Iron deficiency Current Visit: Yes Status: Chronic Onset Date: ~05/09/18 Code(s): E61.1 - IRON DEFICIENCY
[2018-05-10] MEDS: solu-MEDROL 125 MG IV SCH ×3 (08:45→20:45)
[2018-05-10] MEDS ORDERED: Sodium Chloride 0.9% 10 ML FLUSH Syringe IV PRN (09:41)
[2018-05-10] MEDS ORDERED: NON-FORMULARY ITEM (Rosuvastatin Calcium [Crestor] 40 MG) PO SCH (10:00)
[2018-05-10] MEDS: ZOCOR 20MG PO SCH (11:35)
[2018-05-10] MEDS: ceLEXa 20 MG PO SCH (11:36)
[2018-05-10] MEDS: PLAVIX 75 MG Tablet PO SCH (11:36)
[2018-05-10] MEDS: SYNTHROID 75 MCG PO SCH (11:36)
[2018-05-10] MEDS: Protonix 40MG Tablet PO SCH (11:36)
[2018-05-10] MEDS: CLARITIN 10 MG PO SCH (11:36)
[2018-05-10] MEDS: Lopressor 25MG Tab PO SCH ×2 (11:36→22:09)
[2018-05-10] MEDS: ROCEPHIN 1 Gm-D5w 50 ml Bag** 1 G/50 ML IVPB IV SCH (11:38)
[2018-05-10] MEDS: Sodium Chloride 0.9% 10 ML FLUSH Syringe IV SCH ×2 (14:39→20:46)
[2018-05-10] MEDS: Klor Con 10 MEQ PO SCH (22:09)
[2018-05-10] MEDS: NORVASC 5 MG PO SCH (22:09)
[2018-05-11] MEDS: solu-MEDROL 125 MG IV SCH ×2 (03:14→08:17)
[2018-05-11] MEDS: Sodium Chloride 0.9% 10 ML FLUSH Syringe IV SCH ×3 (06:01→22:44)
[2018-05-11] MEDS: Advair Hfa 115/21 Common canister IH SCH ×2 (07:07→19:47)
[2018-05-11] MEDS: DUONEB 0.5-3 MG/3 ml Neb IH SCH ×5 (07:07→23:45)
--- NOTE | 2018-05-11 09:44 | PCM.NOTE ---
Date and Time: 05/11/18 09 Subjective Assessment: she is still very short of breath needing assistance to go from bed to bathroom. she does feel better with resting not as short of breath. Very weak and anxious she was able to sleep better denies any leg pain or chest pain. intermittent coughing. Objective Exam General Appearance: no apparent distress, alert, anxiety Neurologic Exam: alert, oriented x 3, cooperative, normal mood/affect, nml cerebellar function, sensation nml, No motor deficits Skin Exam: normal color, warm, dry Eye Exam: PERRL, EOMI, eyes nml inspection Ears, Nose, Throat Exam: normal ENT inspection, pharynx normal, moist mucous membranes Neck Exam: normal inspection, non-tender, supple, full range of motion Respiratory Exam: prolonged expirations Cardiovascular Exam: regular rate/rhythm, murmur, other (abdominal bruit) Gastrointestinal/Abdomen Exam: soft, No tenderness, No mass Extremity Exam: normal inspection, normal range of motion Back Exam: normal inspection, normal range of motion, No CVA tenderness, No vertebral tenderness Pelvic Exam: deferred Rectal Exam: deferred OBJECTIVE DATA Vital Signs: Vital Signs - 24 hr Temp Pulse Resp BP Pulse Ox 05/11/18 07:13 97.8 F 83 20 140/67 96 05/11/18 04:18 98.1 F 90 24 143/68 96 05/11/18 00:30 97.3 F 80 20 128/58 96 05/10/18 23:27 83 18 93 L 05/10/18 19:52 98.7 F 95 H 23 117/57 97 05/10/18 19:17 82 22 96 05/10/18 16:00 98.9 F 82 18 121/58 96 05/10/18 15:09 90 22 96 05/10/18 12:00 98.7 F 106 H 20 119/63 95 05/10/18 10:57 99 H 24 95 Oxygen-Last 24 hours O2 Percentage 2 Liters = 28% O2 Percentage 2 Liters = 28% O2 Percentage 2 Liters = 28% O2 Percentage 2 Liters = 28% O2 Percentage 2 Liters = 28% O2 Percentage 2 Liters = 28% Pain Assessment - Last Documented Pain Intensity 0 Pain Scale Used FLACC Intake and Output: Intake & Output 05/08/18 05/09/18 05/10/18 05/11/18 11:59 11:59 11:59 11:59 Intake Total 1574 1680 Output Total 300 1250 Balance 1274 430 Weight 58.967 kg 51.9 kg 52 kg Radiology Exams: Radiology Procedures Category Date Time Status CHEST 1 VIEW (PORTABLE) Stat Exams 05/09/18 08:48 Completed CHEST WITH CONTRAST [CT] Stat Exams 05/09/18 09:52 Completed Multi-Disciplinary Progress Notes: Multi-Disciplinary Progress Notes 05/10/18 19:20 Case Management Note by Roslyn Barrow PATENT'S SON CALLED BACK AND S/W ME, HE AGREES PATIENT DOES WELL AT HOME AND ALSO DENIES THE NEEDS FOR ANY NEW SERVICES OR EQUIPMENT AT HOME Initialized on 05/10/18 19:20 - END OF NOTE 05/10/18 14:07 Case Management Note by Roslyn Barrow Addendum entered by Roslyn Barrow 05/10/18 14:34: ADILENE ACTUALLY HUNG UP WHILE ATTEMPTING TO TALK TO HER Original Note: ATTEMPTED TO REACH LAY CAREGIVERS TAYLOR AND ADILENE. LEFT A MESSAGE WITH TAYLOR AND ADILENE WAS UNABLE TO TALK. Initialized on 05/10/18 14:07 - END OF NOTE Assessment/Plan (1) COPD with exacerbation Current Visit: Yes Status: Acute Onset Date: ~05/09/18 Assessment & Plan: wean steroid to prednisone 40 mg from the iv steroid continue nebs and antibiotic work on improved functional capacity with activity increase metoprolol to 50 mg bid add mirtazapine hs for improved anxiety and appetite discussed increased protein in her diet continue ativan prn Code(s): J44.1 - CHRONIC OBSTRUCTIVE PULMONARY DISEASE W (ACUTE) EXACERBATION (2) Acute on chronic respiratory failure with hypoxemia Current Visit: Yes Status: Acute Onset Date: ~05/10/18 Code(s): J96.21 - ACUTE AND CHRONIC RESPIRATORY FAILURE WITH HYPOXIA (3) Peripheral arteriosclerosis Current Visit: Yes Status: Chronic Onset Date: ~05/10/18 Code(s): I70.209 - UNSP ATHSCL ABSENTEE-SHAWNEE ARTERIES OF EXTREMITIES, UNSP EXTREMITY (4) Aortic aneurysm Current Visit: Yes Status: Chronic Onset Date: ~05/09/18 Code(s): I71.9 - AORTIC ANEURYSM OF UNSPECIFIED SITE, WITHOUT RUPTURE (5) Iron deficiency Current Visit: Yes Status: Chronic Onset Date: ~05/09/18 Code(s): E61.1 - IRON DEFICIENCY
[2018-05-11] MEDS ORDERED: DELTASONE 20 MG PO SCH (10:00)
[2018-05-11] MEDS: CLARITIN 10 MG PO SCH (10:31)
[2018-05-11] MEDS: ceLEXa 20 MG PO SCH (10:32)
[2018-05-11] MEDS: SYNTHROID 75 MCG PO SCH (10:32)
[2018-05-11] MEDS: Protonix 40MG Tablet PO SCH (10:32)
[2018-05-11] MEDS: PLAVIX 75 MG Tablet PO SCH (10:33)
[2018-05-11] MEDS: ENOXAPARIN SODIUM SQ SCH (10:33)
[2018-05-11] MEDS: Lopressor 25MG Tab PO SCH ×2 (10:33→22:43)
[2018-05-11] MEDS: ZOCOR 20MG PO SCH (10:33)
[2018-05-11] MEDS: ROCEPHIN 1 Gm-D5w 50 ml Bag** 1 G/50 ML IVPB IV SCH (10:38)
[2018-05-11] MEDS ORDERED: REMERON 30 MG PO SCH (22:00)
[2018-05-11] MEDS ORDERED: TYLENOL 325 MG PO PRN (22:06)
[2018-05-11] MEDS: Klor Con 10 MEQ PO SCH (22:42)
[2018-05-11] MEDS: NORVASC 5 MG PO SCH (22:43)
[2018-05-12] MEDS: DUONEB 0.5-3 MG/3 ml Neb IH SCH ×3 (03:51→10:26)
[2018-05-12] MEDS: Sodium Chloride 0.9% 10 ML FLUSH Syringe IV SCH (06:27)
[2018-05-12] MEDS: Advair Hfa 115/21 Common canister IH SCH (06:27)
[2018-05-12 07:08] VITALS: BP 128/60
[2018-05-12] MEDS: Lopressor 25MG Tab PO SCH (09:31)
[2018-05-12] MEDS: Protonix 40MG Tablet PO SCH (09:31)
[2018-05-12] MEDS: SYNTHROID 75 MCG PO SCH (09:31)
[2018-05-12] MEDS: ceLEXa 20 MG PO SCH (09:31)
[2018-05-12] MEDS: ZOCOR 20MG PO SCH (09:31)
[2018-05-12] MEDS: PLAVIX 75 MG Tablet PO SCH (09:31)
[2018-05-12] MEDS: CLARITIN 10 MG PO SCH (09:31)
[2018-05-12] MEDS: ENOXAPARIN SODIUM SQ SCH (09:33)
[2018-05-12] MEDS: ROCEPHIN 1 Gm-D5w 50 ml Bag** 1 G/50 ML IVPB IV SCH (09:36)
[2018-05-12] MEDS ORDERED: DELTASONE 20 MG PO SCH (10:00)
[2018-05-12 10:36] VITALS: PULSE 84; O2SAT 98
--- NOTE | 2018-05-12 10:40 | PCM.DS ---
Discharge Summary Date of Admission: 05/10/18 08:35 Date of Discharge: 05/12/18 Admitting Physician: CHICO RAZA Primary Care Provider: CHICO RAZA Allergies Allergies No Known Drug Allergies Allergy (Verified 05/09/18 08:57) Hospital Summary - Hospital Course Hospital Course: She presented with increased weakness and shortness of breath with coughing. She has been intermittently worsening since endarterectomy 3 months ago but much worse the last week using her prn oxygen all the time. She was found tachypneic with poor air movement and copd exacerbation. She was treated with antibioticc, steroids and nebs. She was very anxious as well an improved with the lorazepam. She has had increased anxiety also at home on her chronic celexa. She is not eating or sleeping well at home. She has started smoking a few times a day again at home as well. She was thus started on mirtazapine hs as well in the hospital and she slept well and felt better after stating this. Her breathing and her strength were much better after the treatments and she was discharged to home with her oxygen and steroid taper as well as new rx for the mirtazapine and alprazolam prn. Her BP was also high. She was reported to have been taking 20 mg of her amlodipine at home this was decreased to 10 mg and metoprolol was added and she tolerated this well with blood pressure doing very well at time of discharge on this therapy. She was counseled on smoking and plans to quit again now that her anxiety is improved on the medications. - Vitals & Intake/Output Vital Signs: Vital Signs Temperature 98.2 F 05/12/18 07:06 Pulse Rate 84 05/12/18 10:27 Respiratory Rate 18 05/12/18 10:27 Blood Pressure 128/60 05/12/18 07:06 O2 Sat by Pulse Oximetry 98 05/12/18 10:27 Oxygen-Last Documented O2 Percentage 2 Liters = 28% Intake & Output: Intake & Output 05/09/18 05/10/18 05/11/18 05/12/18 11:59 11:59 11:59 11:59 Intake Total 1574 1680 1520 Output Total 300 1250 3950 Balance 1274 430 -2430 Weight 58.967 kg 51.9 kg 52 kg 51.9 kg - Lab Result Diagrams: 05/10/18 05:54 05/10/18 05:54 Micro Results-Entire Visit: Microbiology 05/09/18 09:10 Blood Culture - Preliminary Blood NO GROWTH TO DATE 05/09/18 09:00 Blood Culture - Preliminary Blood NO GROWTH TO DATE - Procedures and Test Procedures and Tests throughout Hospitalization: Therapy Orders & Screens 05/09/18 08:49 Respiratory Nebulizer STAT Comment: Diagnosis: Shortness of Breath 05/09/18 08:57 Respiratory Therapy Assessment DAILY Comment: Diagnosis: Shortness of Breath 05/09/18 09:35 Respiratory Nebulizer STAT Comment: Diagnosis: Shortness of Breath 05/09/18 13:01 Respiratory Nebulizer STAT Comment: Diagnosis: Shortness of Breath 05/09/18 13:53 Oxygen NASAL CANNULA 2 lpm Comment: Diagnosis: Shortness of Breath Respiratory Therapy Consult ROUTINE Comment: Reason For Exam: Diagnosis: Shortness of Breath 05/09/18 14:20 RT Screen per Nursing Assess ONCE Comment: Protocol Order Physician Instructions: Greater than 3 points order RT Admission Screen Reason For Exam: Triggered on Admission Diagnosis: Shortness of Breath, COPD Exacerbation Diagnosis: Shortness of Breath, COPD Exacerbation Pneumonia: No Home O2: Yes Asthma: No CHF: No Home CPAP/BIPAP: No Home Nebs/MDI: Yes Total Points: 10 05/09/18 14:59 Respiratory Therapy Assessment DAILY Comment: Diagnosis: Shortness of Breath, COPD Exacerbation 05/09/18 16:31 Peak Expiratory Flow Rate ONCE Comment: Reason For Exam: Diagnosis: Shortness of Breath, COPD Exacerbation Discharge Exam General Appearance: no apparent distress, thin Neurologic Exam: alert, oriented x 3, cooperative Skin Exam: warm, dry Ears, Nose, Throat Exam: moist mucous membranes Neck Exam: non-tender, supple Respiratory Exam: prolonged expirations, No crackles/rales, No rhonchi, No wheezing Cardiovascular Exam: regular rate/rhythm, murmur, other (abdominal bruit) Gastrointestinal/Abdomen Exam: soft, normal bowel sounds, distention, No tenderness Extremity Exam: normal inspection, No roslyn's sign, No pedal edema Final Diagnosis/Problem List - Final Discharge Diagnosis/Problem (1) COPD with exacerbation Status: Acute Onset Date: ~05/09/18 (2) Acute on chronic respiratory failure with hypoxemia Status: Acute Onset Date: ~05/10/18 (3) Peripheral arteriosclerosis Status: Chronic Onset Date: ~05/10/18 (4) Aortic aneurysm Status: Chronic Onset Date: ~05/09/18 (5) Iron deficiency Status: Chronic Onset Date: ~05/09/18 (6) Anxiety Status: Acute - Discharge Disposition: Home, Self-Care Condition: Fair Prescriptions: New ALPRAZolam [Alprazolam] 0.5 mg PO Q8H PRN #60 tablet PRN Reason: Anxiety Prednisone 10 mg [Deltasone 10 mg] 10 mg PO UD #34 tablet Metoprolol Tartrate 50 mg PO BID #60 tablet Mirtazapine 15 mg PO HS #30 tablet Amlodipine Besylate [Norvasc] 10 mg PO DAILY #30 tablet Continue Potassium Chloride 10 Meq Tab* [Klor Con 10 MEQ] 10 meq PO HS Levothyroxine Sodium 75 Mcg [Synthroid 75 Mcg] 75 mcg PO DAILY Citalopram Hydrobromide 20 mg* [ceLEXa 20 MG] 20 mg PO DAILY Clopidogrel Bisulfate 75 mg [PLAVIX 75 MG Tablet] 75 mg PO DAILY Albuterol 2.5 mg/3 ml Neb [Proventil 2.5 mg/3 ml Neb] 2.5 mg IH QID PRN PRN Reason: Shortness Of Breath Rosuvastatin Calcium [Crestor] 40 mg PO DAILY Loratadine 10 mg [Claritin 10 mg] 10 mg PO DAILY PANTOPRAZOLE 40 mg Tablet [Protonix 40MG Tablet] 40 mg PO QAM Fluticasone/Vilanterol [Breo Ellipta 200-25 Mcg INH] 1 inh PO DAILY Discontinued Amlodipine Besylate 10 mg [Norvasc 10 MG] 20 mg PO HS Instructions: Exacerbation of COPD Follow up with: CHICO RAZA [Primary Care Provider] - Call for Appointment Forms: Discharge Instructions
== END 2018-05-12 11:50 | disposition home or self-care (01) | DRG 190 ==
LOC: ED 08:45 → MED SURG 13:25 → OBSVTOIN 05-10 08:35
PROVIDERS: ADMIT Family Medicine; ATTEND Family Medicine
DX: J44.1 Chronic obstructive pulmonary disease with (acute) exacerbation (principal); J96.21 Acute and chronic respiratory failure with hypoxia; I70.209 Unspecified atherosclerosis of native arteries of extremities, unspecified extremity; I71.9 Aortic aneurysm of unspecified site, without rupture; E61.1 Iron deficiency; E78.5 Hyperlipidemia, unspecified; J45.909 Unspecified asthma, uncomplicated; E78.00 Pure hypercholesterolemia, unspecified; E03.9 Hypothyroidism, unspecified; K21.9 Gastro-esophageal reflux disease without esophagitis; I10 Essential (primary) hypertension; F32.9 Major depressive disorder, single episode, unspecified; Z79.899 Other long term (current) drug therapy
CPT/HCPCS: 36000; 36415; 71045; 71260; 80053; 82805; 84443; 84484; 85025; 85379; 85610; 85730; 87040; 93005; 93041; 93268; 94150; 94640; 94762; 96365; 96374; 99285; G0378; 94760; J0456; J0696; J1650; J2060; J2930; J7609; A9270-GY

== ENCOUNTER 2019-06-17 09:28 | Emergency (ER) | payer MEDICARE, OTHER ==
--- NOTE | 2019-06-17 09:31 | ERPHSYRPT ---
- History of Present Illness Time Seen by Provider: 06/17/19 09:31 Source: patient, family Exam Limitations: no limitations Physician History: The patient is a 5-year-old female with a past medical history significant for COPD and ongoing cigarette smoking as this with the chief complaint of shortness of breath. Offset reportedly was 2 weeks ago. She reports having dyspnea with exertion as well as at rest in addition to wheezing and a productive cough allergies and coughing yellow-campbell sputum. She called her primary care provider and informed her of her complaints and was prescribed oral steroids. The patient reports that she smokes an average 5 cigarettes a day and normally wears oxygen as needed via nasal cannula at 2 L per minute. She denies any fever, chills, dizziness, syncope, chest pain, nausea, vomiting in addition to abdominal pain diarrhea constipation. She denies history of DVT/PE and reportedly has had some carotid stenosis for which he takes Plavix. There is no reported history of lung cancer. the patient does follow with a folder inspector as an outpatient but reportedly does not like her folder inspector. She is accompanied by her daughter who provided details pertaining to the history of present illness. Associated Symptoms: shortness of breath, cough, No nausea, No vomiting, No diaphoresis, No chest pain Allergies/Adverse Reactions: No Known Drug Allergies Allergy (Verified 06/17/19 09:43) Home Medications: Citalopram Hydrobromide 20 mg* [ceLEXa 20 MG] 20 mg PO DAILY 08/20/16 [ History] Clopidogrel Bisulfate 75 mg [PLAVIX 75 MG Tablet] 75 mg PO DAILY 08/20/16 [History] Levothyroxine Sodium 75 Mcg [Synthroid 75 Mcg] 75 mcg PO DAILY 08/20/16 [ History] Potassium Chloride 10 Meq Tab* [Klor Con 10 MEQ] 10 meq PO HS 08/20/16 [ History] Albuterol 2.5 mg/3 ml Neb [Proventil 2.5 mg/3 ml Neb] 2.5 mg IH QID PRN [History] Rosuvastatin Calcium [Crestor] 40 mg PO DAILY 09/28/16 [History] Fluticasone/Vilanterol [Breo Ellipta 200-25 Mcg INH] 1 inh PO DAILY 04/06/18 [ History] Loratadine 10 mg [Claritin 10 mg] 10 mg PO DAILY 04/06/18 [History] PANTOPRAZOLE 40 mg Tablet [Protonix 40MG Tablet] 40 mg PO QAM 04/06/18 [ History] Hx Tetanus, Diphtheria Vaccination/Date Given: Yes Hx Influenza Vaccination/Date Given: Yes Hx Pneumococcal Vaccination/Date Given: Yes - Review of Systems Constitutional: No Symptoms, No Fever, No Chills Respiratory: Cough, Dyspnea, Dyspnea on Exertion (JOHNSON), Wheezing Cardiac: No Chest Pain, No Edema, No Palpitations, No Syncope, No PND Abdominal/Gastrointestinal: No Abdominal Pain, No Nausea, No Vomiting Genitourinary Symptoms: No Symptoms Musculoskeletal: No Symptoms Skin: No Symptoms Neurological: No Symptoms Psychological: Anxiety All Other Systems: Reviewed and Negative - Past Medical History Pertinent Past Medical History: Yes Neurological History: No Pertinent History ENT History: Other Cardiac History: Aneurysm, High Cholesterol, Hypertension Respiratory History: COPD Endocrine Medical History: Hypothyroidism Musculoskeletal History: Osteoporosis GI Medical History: No Pertinent History History: No Pertinent History Psycho-Social History: No Pertinent History Female Reproductive Disorders: No Pertinent History Other Medical History: patient had injury to left eye causing patient to only see out of left side of eye,iron defiency - Past Surgical History Past Surgical History: Yes Neuro Surgical History: No Pertinent History Cardiac: Angioplasty, Cardiac Catheterization Respiratory: No Pertinent History Gastrointestinal: No Pertinent History Genitourinary: No Pertinent History Musculoskeletal: No Pertinent History Female Surgical History: Hysterectomy Other Surgical History: femoral bypass. bilateral carotids - Social History Smoking Status: Former smoker How long have you smoked: 40years Exposure to second hand smoke: No Drug Use: none Patient Lives Alone: No - Nursing Vital Signs Nursing Vital Signs: Initial Vital Signs Temperature 97.9 F 06/17/19 09:43 Pulse Rate 87 06/17/19 09:43 Respiratory Rate 30 H 06/17/19 09:43 Blood Pressure 193/88 06/17/19 09:43 O2 Sat by Pulse Oximetry 93 L 06/17/19 09:43 Pain Scale Pain Intensity 0 - Physical Exam General Appearance: mild distress, thin Eye Exam: PERRL/EOMI, No photophobia, No EOM palsy/anisocoria Ears, Nose, Throat Exam: normal ENT inspection Neck Exam: normal inspection, No non-tender, No supple Respiratory Exam: respiratory distress, diminished breath sounds, prolonged expirations, wheezing Cardiovascular Exam: regular rate/rhythm, normal heart sounds, normal peripheral pulses, capillary refill <2 sec, No murmur, No friction rub, No edema Gastrointestinal/Abdomen Exam: soft, No tenderness, No distention, No mass, No guarding, No ecchymosis Pelvic Exam: not done Back Exam: normal inspection Extremity Exam: normal inspection, other (No asymmetric lower extremity swelling , calf tenderness, or erythema to suggest DVT) Neurologic Exam: alert, oriented x 3, cooperative, other (Anxious) Skin Exam: normal color, warm, dry, rash SpO2 Interpretation: normal O2 Delivery: Room Air - Course Nursing assessment & vital signs reviewed: Yes EKG Interpreted by Me: RATE, Sinus Rhythm, NORMAL AXIS, Other (Artifact noted. No obvious STEMI or evidence of acute myocardial ischemia or injury) - Radiology Exams Chest X-ray Interpretation: Reviewed by me (Changes consistent with COPD and evidence of possible RUL PNA or atelectasis) Ordered Tests: Active Orders 24 hr Category Date Time Status Duplicating Machine Mechanic STAT Care 06/17/19 10:03 Active EKG-ER Only STAT Care 06/17/19 10:01 Active IV Insertion STAT Care 06/17/19 10:01 Active Pulse Oximetry (ED) STAT Care 06/17/19 10:01 Active CHEST 2 VIEWS (PA AND LAT) Stat Exams 06/17/19 10:02 Completed BMP Stat Lab 06/17/19 10:31 Completed CBC W DIFF Stat Lab 06/17/19 10:31 Completed NT PRO BNP Stat Lab 06/17/19 10:31 Completed TROPONIN Stat Lab 06/17/19 10:31 Completed Oxygen NASAL CANNULA 2 lpm RT 06/17/19 10:24 Active Peak Expiratory Flow Rate ONCE RT 06/17/19 10:35 Active Pulse Oximetry .spot check RT 06/17/19 10:25 Active Respiratory Therapy Assessment DAILY RT 06/17/19 10:24 Active Medication Summary Discontinued Medications Generic Name Dose Route Start Last Admin Trade Name Freq PRN Reason Stop Dose Admin Albuterol Sulfate 2.5 mg 06/17/19 10:01 06/17/19 10:48 Proventil 2.5 Mg/3 Ml Neb IH 06/17/19 10:02 2.5 mg STAT ONE Administration Albuterol Sulfate Confirm 06/17/19 10:10 Proventil 2.5 Mg/3 Ml Neb Administered 06/17/19 10:11 Dose 2.5 mg IH .STK-MED ONE Albuterol/Ipratropium 3 ml 06/17/19 10:01 06/17/19 10:22 Duoneb 0.5-3 Mg/3 Ml Neb IH 06/17/19 10:02 3 ml STAT ONE Administration Albuterol/Ipratropium Confirm 06/17/19 10:10 Duoneb 0.5-3 Mg/3 Ml Neb Administered 06/17/19 10:11 Dose 3 ml IH .STK-MED ONE Doxycycline Hyclate 100 mg 06/17/19 10:24 06/17/19 10:33 Vibramycin 100 Mg PO 06/17/19 10:25 100 mg STAT ONE Administration Doxycycline Hyclate Confirm 06/17/19 10:32 Vibramycin 100 Mg Administered 06/17/19 10:33 Dose 100 mg .ROUTE .STK-MED ONE Prednisone 40 mg 06/17/19 10:01 06/17/19 10:06 Deltasone 20 Mg PO 06/17/19 10:02 40 mg STAT ONE Administration Prednisone Confirm 06/17/19 10:06 Deltasone 20 Mg Administered 06/17/19 10:07 Dose 40 mg .ROUTE .STK-MED ONE Lab/Rad Data: Laboratory Result Diagrams 06/17/19 10:31 06/17/19 10:31 Laboratory Results 06/17/19 06/17/19 06/17/19 Range/Units 10:31 10:31 10:31 WBC 13.7 H (4.0-10.5) K/mm3 RBC 4.46 (4.1-5.4) M/mm3 Hgb 13.5 (12.0-16.0) gm/dl Hct 41.8 (35-47) % MCV 93.7 (78-100) fl MCH 30.3 (26-32) pg MCHC 32.3 (32-36) g/dl RDW 15.6 H (11.5-14.0) % Plt Count 369 (150-450) K/mm3 MPV 9.6 (7.5-11.0) fl Gran % 94.8 H (36.0-66.0) % Eos # (Auto) 0.01 (0-0.5) Absolute Lymphs (auto) 0.47 L (1.0-4.6) Absolute Monos (auto) 0.22 (0.0-1.3) Lymphocytes % 3.4 L (24.0-44.0) % Monocytes % 1.6 (0.0-12.0) % Eosinophils % 0.1 (0.00-5.0) % Basophils % 0.1 (0.0-0.4) % Absolute Granulocytes 12.98 H (1.4-6.9) Basophils # 0.01 (0-0.4) Sodium 139 (137-145) mmol/L Potassium 3.8 (3.5-5.1) mmol/L Chloride 102 (98-107) mmol/L Carbon Dioxide 27 (22-30) mmol/L Anion Gap 14.4 (5-15) MEQ/L BUN 21 H (7-17) mg/dL Creatinine 0.70 (0.52-1.04) mg/dL Estimated GFR > 60.0 ML/MIN Glucose 123 H (74-106) mg/dL Calcium 9.4 (8.4-10.2) mg/dL Troponin I < 0.012 (0.000-0.034) ng/mL NT-Pro-B Natriuret Pep 437 (0-900) pg/mL Slides for Path Review YES - Progress Progress: improved Progress Note: 06/17/19 16:10 nnontoxic in appearance. EKG, labs, and chest x-ray were reviewed. The patient is likely suffering from a COPD exacerbation and possibly right upper lobe pneumonia versus atelectasis. Her laceration and show no evidence to suggest myocardial ischemia or any signs of volume overload, specifically with a normal BMP in addition to a chest x-ray that showed no evidence of pulmonary edema. My suspicion for a pulmonary embolism is low at this time given the patient's clinical exam. She is accompanied by her daughter who is requesting that the patient had a CT scan of her chest during my initial interview and exam stating "I do understand why she is only short of breath in addition to make sure we don't miss anything ". I explained to the daughter that the patient's likely source for her dyspnea is her ongoing cigarette smoking and then began with a chest x-ray and if warranted a CT will be obtained. Ultimately I don't think a CT of her chest was warranted in the emergency department at this time and if the patient and her daughter wish to pursue this this can be done as an outpatient through her primary care provider. She receives serial nebs in the emergency department in addition to oral prednisone and was observed with noted improvement in her aeration and resolution of her wheezing. She demonstrated ability to ambulate in emergency department in while doing this for a pulse oximeter reading was monitored her with no evidence of hypoxia and she did not have any significant increase work of breathing. Because of this, again the patient appropriately to be discharged home with outpatient therapy consisting of albuterol, doxycycline, in addition to prednisone burst. The patient's daughter was puzzled why she did not receive antibiotics, specifically IV antibiotics and informed her that she did receive a dose of doxycycline emergency department today and this isn't the standard of care. The patient was requesting a prescription for Keflex to treat her pneumonia. I informed her this was not the appropriate antibiotic for this disease process, specifically with her comorbidities, specifically COPD. Ultimately the patient was discharged home instructed to follow with her PCP later this week. The daughter requested that she have a refill on her prednisone after stating that she is currently at her steroid although she informing during the initial interview that she was recently prescribed a prednisone taper. A prescription for 40 mg daily of prednisone x 4 days was transmitted to her pharmacy 06/17/19 16:13 Counseled pt/family regarding: lab results, diagnosis, need for follow-up, rad results, smoking cessation - Departure Departure Disposition: Home Clinical Impression: COPD exacerbation, Right upper lobe pneumonia, Tobacco abuse Condition: Stable Critical Care Time: No Referrals: MINDY MILLER [Primary Care Provider] - Instructions: Chronic Obstructive Pulmonary Disease, Pneumonia in Adults, Quitting Smoking for Older Adults Prescriptions: Benzonatate [Tessalon Perle] 100 mg PO [id number] PRN #30 capsule PRN Reason: Cough Albuterol 8 gm Mdi Hfa [Ventolin Hfa MDI] 90 mcg IH Q4H PRN #1 [id number] PRN Reason: Shortness Of Breath Doxycycline Hyclate 100 mg [Vibramycin 100 MG] 100 mg PO BID #14 tab Prednisone 10 mg [Deltasone 10 mg] 40 mg PO DAILY 4 Days #16 tablet
[2019-06-17] MEDS ORDERED: DELTASONE 20 MG PO ONE (10:01)
[2019-06-17] MEDS ORDERED: DUONEB 0.5-3 MG/3 ml Neb IH ONE ×2 (10:01→10:10)
[2019-06-17] MEDS ORDERED: PROVENTIL 2.5 MG/3 ML NEB IH ONE ×2 (10:01→10:10)
[2019-06-17] MEDS ORDERED: DELTASONE 20 MG ONE (10:06)
--- NOTE | 2019-06-17 10:22 | XRAY ---
Indication: Cough and dyspnea. COPD exacerbation. Comparison: May 09, 2018. PA/lateral chest again demonstrates COPD with new mild right middle lobe infiltrate versus atelectasis. Remaining heart and lungs unremarkable. Bony thorax demonstrates osteopenia, degenerative changes, bilateral calcified breast implants, and L3 kyphoplasty.
[2019-06-17] MEDS ORDERED: Vibramycin 100 MG PO ONE (10:24)
[2019-06-17] MEDS ORDERED: Vibramycin 100 MG ONE (10:32)
[2019-06-17 10:39] LABS: Absolute Neutrophil Ct (ANC) 12.98 (1.4-6.9); BASOPHIL % 0.1 % (0.0-0.4); Basophil (Absolute #) 0.01 (0-0.4); Eosinophil % 0.1 % (0.00-5.0); Eosinophil (Absolute #) 0.01 (0-0.5); Hematocrit 41.8 % (35-47); Hemoglobin 13.5 gm/dl (12.0-16.0); Lymphocyte (Absolute #) 0.47 (1.0-4.6); Lymphocytes % 3.4 % (24.0-44.0); Mean Cell Volume 93.7 fl (78-100); Mean Corpuscular Hemoglobin 30.3 pg (26-32); Mean Corpuscular Hgb Concent. 32.3 g/dl (32-36); Mean Platelet Volume 9.6 fl (7.5-11.0); Monocyte (Absolute #) 0.22 (0.0-1.3); Monocytes % 1.6 % (0.0-12.0); Neutrophil % 94.8 % (36.0-66.0); Platelet Count 369 K/mm3 (150-450); Red Blood Count 4.46 M/mm3 (4.1-5.4); Red Cell Distribution Width 15.6 % (11.5-14.0); White Blood Count 13.7 K/mm3 (4.0-10.5)
[2019-06-17 11:00] LABS: ANION GAP 14.4 MEQ/L (5-15); BLOOD UREA NITROGEN 21 mg/dL (7-17); CHLORIDE 102 mmol/L (98-107); Calcium 9.4 mg/dL (8.4-10.2); Carbon Dioxide 27 mmol/L (22-30); Glucose 123 mg/dL (74-106); NT PRO BNP 437 pg/mL (0-900); Potassium 3.8 mmol/L (3.5-5.1); SODIUM 139 mmol/L (137-145)
[2019-06-17 11:49] LABS: Slide Review 1 YES
[2019-06-17 12:42] VITALS: BP 150/80; PULSE 92; O2SAT 93
== END 2019-06-17 12:48 | disposition home or self-care (01) ==
LOC: ED 09:28
DX: J44.1 Chronic obstructive pulmonary disease with (acute) exacerbation (principal); J18.1 Lobar pneumonia, unspecified organism; Z72.0 Tobacco use; Z99.81 Dependence on supplemental oxygen; Z79.899 Other long term (current) drug therapy; I10 Essential (primary) hypertension; E78.00 Pure hypercholesterolemia, unspecified; E03.9 Hypothyroidism, unspecified; M81.0 Age-related osteoporosis without current pathological fracture
CPT/HCPCS: 36000; 36415; 71046; 80048; 83880; 84484; 85025; 93005; 93041; 94150; 94640; 94760; 99284; J7609; A9270-GY

== ENCOUNTER 2020-05-10 08:14 | Day surgery (SDC) | payer MEDICARE, OTHER ==
[~2020-05-10 08:14] MED LIST changes: -DIPRIVAN 200 MG/20 ML IV ONE; -Ketamine HCl 50 MG/ML IV ONE; +Lactated Ringers 1,000 ML IV ONE; +Lactated Ringers 1,000 ML IV SCH
--- NOTE | 2020-05-10 08:15 | HP ---
DATE OF SURGERY: 05/10/2020 HISTORY OF PRESENT ILLNESS: The patient is a 69 year old with no gross bloody stools. She has anemia of unclear etiology. Bowel movements are frequent. No current abdominal pain. Family history has a grandparent with colon cancer. Because of her anemia of unclear etiology I feel she would benefit from upper and lower endoscopy to rule out upper or lower GI source. PAST MEDICAL HISTORY: Peripheral vascular disease. Chronic lung disease. She uses oxygen. PAST SURGICAL HISTORY: Fem-fem bypass in the past. Endoscopy in the past. MEDICATIONS: Prednisone, Albuterol, nebulizer. She uses oxygen 2 liters as needed, Trelegy, pantoprazole, clopidogrel, loratadine, potassium, levothyroxine for some hypothyroidism, amlodipine for hypertension, rosuvastatin for hyperlipidemia. ALLERGIES: NKDA. FAMILY HISTORY: Diabetes, heart disease, stroke. Grandparent with colon cancer. SOCIAL HISTORY: No smoking or alcohol abuse. REVIEW OF SYSTEMS: Fourteen systems reviewed negative or noncontributory as above and per preadmission assessment. PHYSICAL EXAMINATION: GENERAL: No acute distress. A chronically ill female. HEENT: Sclerae nonicteric. NECK: No JVD. CHEST: Equal excursion, decreased breath sounds symmetrical bilaterally consistent with chronic lung disease. CVS: Regular rate and rhythm. ABDOMEN: Soft. No peritoneal signs. nontender, nondistended. EXTREMITIES: No cyanosis. NEURO: Alert, moving extremities symmetrically. RECTAL: Deferred timed to endoscopy exam. PSYCH: Appropriate mood and affect. IMPRESSION: Anemia of unclear etiology, needs upper and lower endoscopy to rule out upper or lower GI etiology. Risks and benefits explained in detail including but not limited to bleeding or infection, risk of bowel injury or perforation possibly requiring open procedure, risk of missed or nondiagnosis or incomplete exam possibly requiring barium enema, other studies or procedures. General risk of anesthesia or sedation, risk of bowel prep but not limited to, possibility of inability to diagnose the etiology of her anemia, may require further work up per Dr. Laboy. She is agreeable to the plan, will proceed with EGD and colonoscopy as an outpatient.
[2020-05-10] MEDS ORDERED: Versed 2 MG/2 ML Injection ONE (10:54)
[2020-05-10] MEDS ORDERED: DIPRIVAN 200 MG/20 ML IV ONE (10:54)
[2020-05-10] MEDS ORDERED: Lactated Ringers 1,000 ML IV ONE (10:57)
[2020-05-10 12:07] VITALS: O2SAT 96
[2020-05-10 12:09] VITALS: PULSE 87
[2020-05-10 12:28] VITALS: BP 141/89
--- NOTE | 2020-05-11 08:22 | OP ---
SURGERY DATE/TIME: 05/10/2020 1056 PREOPERATIVE DIAGNOSIS: Anemia unclear etiology, need for upper and lower endoscopy. POSTOPERATIVE DIAGNOSES: 1) Minimal to mild gastritis. 2) Short segment distal gastroesophagitis versus very short segment early Brock's path pending distal esophagus. 3) ASA Class III. 4) Fair bowel prep. 5) Multiple small colon polyp's proximal transverse colon, ascending colon and cecum, fair bowel prep. 6) Withdrawal time eight minutes. 7) Photo documentation appendiceal opening. PROCEDURES: 1) EGD with cold biopsy of antrum to evaluate for Helicobacter pylori. 2) Cold biopsy distal esophagus to evaluate very short segment possible early Brock's versus normal variation of the gastroesophageal junction versus early gastroesophagitis. 3) Colonoscopy to cecum. 4) Hot biopsy removal of three small early transverse colon polyps. 5) Hot biopsy removal of two or three small raised ascending colon polyps. 6) Hot snare polypectomy of 3 mm ascending colon polyp. 7) Hot biopsy of 2 mm or less early polyp versus hyperplastic lesion cecum. SURGEON: Dr. Kali Martinez. ANESTHESIA: MAC. ESTIMATED BLOOD LOSS: Minimal. INDICATIONS: As noted above. Risks and benefits explained in detail and not limited to and consent obtained. DESCRIPTION OF PROCEDURE AND FINDINGS: The patient is taken to the endoscopy room. MAC anesthesia introduced. Bite block positioned. Video gastroscope easily passed down the esophagus through the patent pylorus to the junction to the junction of second and third portion of the duodenum. Proximal duodenum grossly unremarkable. No signs of any obvious ulcers or masses. The scope pulled back in the stomach and had some minimal to mild gastritis. Cold biopsy taken to evaluate for Helicobacter pylori. On retroflex gastroesophageal junction snug against the scope. No signs of any large hiatal hernia. Scope straightened. The gastroesophageal junction about 38 cm. There was a little short segment of some salmon-pink mucosa extending up the esophagus whether this is early Brock's or not cold biopsy is taken in this area. Good hemostasis noted. The remainder of the esophagus grossly unremarkable. The gastroesophageal junction was about 38 cm. The scope was withdrawn. Attention is then turned to colonoscopy. Digital rectal exam did not reveal any rectal masses. Video colonoscope inserted and passed up through the very tortuous sigmoid, descending, transverse colon and ascending colon. Positioning on her back and external pressure, the scope was able to be passed around to the right lower quadrant where light transluminating through right lower quadrant and palpation of the scope. Evaluation of the valve and appendiceal orifice is identified. I took a picture of the appendiceal orifice whether it saved or not I am not sure. There was a small early polyp near the appendiceal orifice versus hyperplastic lesion removed with hot biopsy forceps with brief bursts of cautery. Good hemostasis noted. Otherwise there were two or three small early polyps in the ascending colon removed with hot biopsy forceps with brief bursts of cautery. Good hemostasis noted. One - 3 mm polyp removed with hot snare polypectomy and brief bursts of cautery. Good hemostasis noted. There were three small early polyps measuring 2 to 3 mm in the very proximal transverse colon and these were removed with hot biopsy forceps with brief bursts of cautery. The largest one was removed in two pieces in piecemeal fashion hot biopsy forceps with brief bursts of cautery. Good hemostasis noted. Prep overall was fair. ASA Class III. Withdrawal time was eight minutes. There was a little bit of liquidy semi-solid stool suction irrigated as clear as possible. On withdrawal of the scope did not reveal any signs of any other large polyps, masses or obstructing lesions back to the rectum. The patient tolerated the procedure well. There were no immediate complications. Again, withdrawal time was about eight minutes. Findings discussed with a family member over the phone. I will see her back in the office next week to go over the results.
== END 2020-05-10 12:30 | disposition home or self-care (01) ==
LOC: SDC 08:14
PROVIDERS: ATTEND Surgery
DX: K29.70 Gastritis, unspecified, without bleeding (principal); D12.2 Benign neoplasm of ascending colon; D12.0 Benign neoplasm of cecum; D12.3 Benign neoplasm of transverse colon; K20.90 Esophagitis, unspecified without bleeding; J98.4 Other disorders of lung; Z99.81 Dependence on supplemental oxygen; Z79.899 Other long term (current) drug therapy; I10 Essential (primary) hypertension; E03.9 Hypothyroidism, unspecified; E78.5 Hyperlipidemia, unspecified; Z80.0 Family history of malignant neoplasm of digestive organs
CPT/HCPCS: 87081; 99100; J2250; J2704

== ENCOUNTER 2021-06-28 09:44 | Emergency (ER) | payer MEDICARE, OTHER ==
[2021-06-28] MEDS ORDERED: Merrem 1 GM 1 G in Sodium Chloride 100ML MINI-BAG PLUS 100 ML IV ONE (10:11)
[2021-06-28 10:12] LABS: Hematocrit 21.9 % (35-47); INR 1.05 (0.8-3.0); Mean Cell Volume 98.6 fl (78-100); Mean Corpuscular Hemoglobin 27.9 pg (26-32); Mean Corpuscular Hgb Concent. 28.3 g/dl (32-36); Mean Platelet Volume 10.6 fl (7.5-11.0); PROTIME 12.4 SECONDS (9.4-12.5); Platelet Count 338 K/mm3 (150-450); Red Blood Count 2.22 M/mm3 (4.1-5.4); Red Cell Distribution Width 16.1 % (11.5-14.0); White Blood Count 11.9 K/mm3 (4.0-10.5)
[2021-06-28 10:14] LABS: A-aADO2 422; ABG POTASSIUM 4.4 (3.5-5.1); ARTERIAL BLOOD GAS FIO2 100 %; ARTERIAL BLOOD GAS PO2 202 mmHg (75-100); CARBOXYHEMOGLOBIN 0.7 % THgb (0.0-6.9); HGB O2 SAT 97.9 g/dF (94-100); Methhemoglobin 0.4 % (1.4-1.5)
[2021-06-28 10:14] LABS: PTT 46.5 SECONDS (25.1-36.5)
[2021-06-28 10:15] LABS: ABG HEMOGLOBIN 5.7; ARTERIAL BLOOD GAS PCO2 71 mmHg (35-45)
[2021-06-28 10:16] LABS: ABG SITE lr; ARTERIAL BLD GAS TIDAL VOLUME 500 cc; ARTERIAL BLOOD GAS PEEP 5 cmH2O; ARTERIAL BLOOD GAS VENT MODE A/C; ARTERIAL BLOOD GAS VENT RATE 14 /MIN
[2021-06-28 10:17] LABS: Hemoglobin 6.2 gm/dl (12.0-16.0)
[2021-06-28 10:21] LABS: ALBUMIN 2.1 g/dL (3.5-5.0); ANION GAP 19.5 MEQ/L (5-15); BILIRUBIN,TOTAL 0.2 mg/dL (0.2-1.3); Creatinine 1 2.63 mg/dL (0.52-1.04); Potassium 5.2 mmol/L (3.5-5.1); Total Protein 4.1 g/dL (6.3-8.2)
--- NOTE | 2021-06-28 10:29 | XRAY ---
Indication: Endotracheal tube placement. Comparison: June 17, 2019. Portable chest demonstrates new endotracheal tube tip 6 cm above catherine. New borderline cardiomegaly, vascular congestion, and pulmonary edema favoring mild early cardiac decompensation/CHF. Superimposed pneumonia not completely excluded. New 6.2 x 3.7 cm medial right apical masslike opacity. Stable COPD, osteopenia, degenerative changes, and bilateral calcified breast implants.
--- NOTE | 2021-06-28 10:31 | XRAY ---
Indication: NG tube placement. Comparison: Taken earlier in the day. Portable chest demonstrates new NG tube tip in stomach. Stable NG tube tip, COPD, borderline cardiomegaly, vascular congestion, pulmonary edema, right apical masslike opacity, and bilateral calcified breast implants.
[2021-06-28] MEDS ORDERED: HUMULIN R SQ ONE (10:35)
--- NOTE | 2021-06-28 10:57 | XRAY ---
Indication: Acute mental status change. Unresponsive. Multiple contiguous axial images obtained through the head without contrast. Comparison: None Age-appropriate global atrophy and mild periventricular degenerative micro-ischemia bilaterally. Tiny remote lacunar infarct right basal ganglia and right caudate head. No acute intracranial hemorrhage, abnormal extra-axial fluid collection, or mass effect. Fourth ventricle is midline without hydrocephalus. Bony calvarium intact. Visualized paranasal sinuses and mastoid air cells are clear. Impression: Nonacute senile brain with remote lacunar infarcts right basal ganglia/right caudate.
[2021-06-28] MEDS ORDERED: Sodium Chloride 0.9% 1000 ML 1,000 ML ONE (10:58)
[2021-06-28] MEDS ORDERED: HUMULIN R ONE (10:58)
--- NOTE | 2021-06-28 11:17 | XRAY ---
Indication: Respiratory failure. Multiple contiguous axial images obtained through the chest without contrast. Comparison: March 25, 2021. Lungs demonstrates new pulmonary edema with moderate bilateral pleural effusions. Also new moderate posterior lung consolidating airspace disease bilaterally. Again chronic findings including diffuse pulmonary emphysema, scattered fibrosis/scarring, and right mid lung calcified granulomas. Medial right middle lobe demonstrates worsening subsegmental atelectasis. Heart is now enlarged. There remains extensive coronary and aortic calcifications. Stable chunky mediastinal calcified nodes. New supraclavicular air bubbles bilaterally and in the SVC favored to be vascular in etiology. SVC is also now enlarged up to 2.3 cm in diameter concerning for SVC obstruction, right heart strain, or CHF. New endotracheal tube tip and NG tube tip in good position. Bony thorax again demonstrates osteopenia, multilevel degenerative changes, remote T7/T9 fractures, and L2 kyphoplasty. Again incidental densely calcified bilateral breast implants. Limited upper abdomen again demonstrates tiny calcified splenic granulomas, small right adrenal adenoma, and right renal atrophy. Enlarging 4.6 cm distal AAA, previously 4.4 cm. Impression: 1. New cardiomegaly, pulmonary edema, and bilateral pleural effusions favoring cardiac decompensation/CHF. 2. New diffuse bilateral posterior consolidating airspace disease. 3. New enlarged SVC either explained by SVC obstruction, right heart strain, or CHF. Finding corresponds to the right apical masslike opacity on same-day chest radiograph. 4. New endotracheal tube and NG tube in situ. 5. Worsening right middle lobe subsegmental atelectasis. 6. Again extensive arteriosclerotic disease with minimally enlarging distal AAA. 7. Chronic findings including pulmonary emphysema, old granulomatous disease, right adrenal adenoma, right renal atrophy, calcified breast implants, and chronic bony findings.
[2021-06-28 11:21] VITALS: O2SAT 100
[2021-06-28] MEDS ORDERED: Lasix 40 MG/4 ML ONE (11:24)
[2021-06-28] MEDS ORDERED: Lasix 40 MG/4 ML IV ONE (11:24)
[2021-06-28] MEDS ORDERED: HUMULIN R 100 UNIT in Sodium Chloride 0.9% 100 ML BAG 100 ML IV PRN (11:41)
[2021-06-28] MEDS ORDERED: SUBLIMAZE 100 MCG/2 ML IV ONE (11:44)
[2021-06-28] MEDS ORDERED: SUBLIMAZE 100 MCG/2 ML ONE ×2 (11:46→13:00)
[2021-06-28 11:59] LABS: ABO TYPING A; Antibody Screen NEGATIVE (NEGATIVE); RH TYPING POSITIVE
[2021-06-28] MEDS ORDERED: Versed 2 MG/2 ML Injection IV ONE (12:01)
[2021-06-28 12:02] LABS: CROSS MATCH (PRBC) COMPATIBLE (COMPATIBLE)
[2021-06-28] MEDS ORDERED: VERSED 5 MG/5 ML ONE (12:04)
[2021-06-28 12:20] LABS: A-aADO2 324; ABG HEMOGLOBIN 8.8; ABG POTASSIUM 4.6 (3.5-5.1); ARTERIAL BLD GAS O2 SATURATION 98.8 % (95-100); ARTERIAL BLD GAS TIDAL VOLUME 500 cc; ARTERIAL BLOOD GAS BASE EXCESS -17.8 (-2.0-2.0); ARTERIAL BLOOD GAS FIO2 80 %; ARTERIAL BLOOD GAS PCO2 49 mmHg (35-45); ARTERIAL BLOOD GAS PO2 185 mmHg (75-100); ARTERIAL BLOOD GAS VENT MODE A/C; CARBOXYHEMOGLOBIN 0.6 % THgb (0.0-6.9); HCO3- 12.9 (22-28); HGB O2 SAT 97.5 g/dF (94-100); Methhemoglobin 0.7 % (1.4-1.5)
[2021-06-28 12:21] LABS: ARTERIAL BLOOD GAS pH 7.03 (7.35-7.45)
[2021-06-28 12:22] LABS: ABG SITE RIGHT RADIAL
[2021-06-28 12:26] LABS: Appearance CLOUDY (CLEAR); Bacteria MODERATE /HPF (NEGATIVE); Bilirubin NEGATIVE (NEGATIVE); Blood SMALL Ery/ul (0-5); Epithelial Cells RARE /HPF (FEW); Glucose 150 mg/dL (NEGATIVE); Ketones NEGATIVE (NEGATIVE); Leukocyte Esterase SMALL (NEGATIVE); Mucus SLIGHT /HPF (NEGATIVE); Nitrite NEGATIVE (NEGATIVE); Non-Squamous Epithelial Cells RARE /HPF (FEW); Protein,Urine Dip >=500 (Negative); RBC 26-50 /HPF (0-2); Specific Gravity 1.013 (1.005-1.025); Urobilinogen NEGATIVE mg/dL (0-1); WBC 51-100 /HPF (0-5)
[2021-06-28 12:30] LABS: INFLUENZA A NEGATIVE (NEGATIVE); INFLUENZA B NEGATIVE (NEGATIVE); RESPIRATORY SYNCTIAL VIRUS NEGATIVE (Negative); SARS-CoV-2 Xpert Express NEGATIVE (NEGATIVE)
[2021-06-28 12:46] VITALS: BP 92/73; PULSE 103
[2021-06-28 13:24] LABS: Budding Yeast Few /HPF (NEGATIVE)
[2021-06-28 14:41] LABS: BAND 1 % (0.0-2.0); Eosinophil 1 % (0.00-3.0); Hypochromia 1+; Lymphocytes 48 % (24-44); Monocyte 3 % (0.0-12.0); Neutrophils 47 % (36.0-66.0); Platelet Estimate NORMAL (NORMAL); Polychromasia 1+; Total Cells Counted 100
[2021-06-28 14:42] LABS: Burr Cells 1+
--- NOTE | 2021-06-28 18:30 | ERPHSYRPT ---
- History of Present Illness Source: EMS Exam Limitations: clinical condition Patient Subjective Stated Complaint: EMS states "Her family spoke with her last night at 8 pm and they stated that she took an ativan and mariano to sleep. They could not get ahold of her this morning and came to visit her and she was unresponsive not breathing with a low pulse. When we arrived, pt had a heart rate of 32. We put an IGEL in and started to pace the pt. Capture was achieved and we transported here." Triage Nursing Assessment: Upon arrival, pt was being paced with capture and a [address] Upon moveing pt over to the bed, lost capture on pacing and CPR started. See nursing noted for time of treatments. Physician History: 70 yo wf brought to ER per EMS after being found at home unresponsive w agonal breathing per daughter/granddaughter. EMS states that she had a thready pulse and placed a Size5 Igel. Pt was extremely bradycardic so external pacer placed and transported to ER. Pt arrived in ER wo spontaneous respirations but being bagged. Pacer turned off and rhythm wo palpable pulse(PEA). Manual compressions started while Lucus device placed. Pt intubated easily per ER physician w #8 ETT/+ colormetric change/Good BBS. Pt given IV fluid bolus(total 2L/IV Epi x3/Atropine 1mg IV x 1 w ROSC. ETT confirmed per CXR along w NG tube placed per nursing. Levafed drip started due to hypotension. EKG after ROSC demonstrated IVCD/diffuse ST segment changes. CT head neg/CT chest demonstrated B airspace disease w B effusions/pulmonary edema. 1gm IV Meropenem given. Pt w significantly lower Hb than previous and rectal exam w possible blood(Hemoccult not available at hospital) so 1unit prbc's given. 40mg IV Lasix given after transfusion. Hyperglycemia treated w 10units sq regular insulin/insulin drip started. Timing/Duration: other (Unknown duration) Severity of Dyspnea-Max: severe Severity of Dyspnea-Current: severe Possible Cause: no prior episodes Modifying Factors: Improves With: other (Pt in respiratory arrest) Allergies/Adverse Reactions: No Known Drug Allergies Allergy (Verified 05/10/20 08:43) Home Medications: Levothyroxine Sodium 75 Mcg [Synthroid 75 Mcg] 75 mcg PO DAILY 08/20/16 [History] Potassium Chloride 10 Meq Tab* [Klor Con 10 MEQ] 10 meq PO HS 08/20/16 [History] Albuterol 2.5 mg/3 ml Neb [Proventil 2.5 mg/3 ml Neb] 2.5 mg IH QID PRN 09/28/16 [History] Rosuvastatin Calcium [Crestor] 20 mg PO DAILY 09/28/16 [History] Loratadine 10 mg [Claritin 10 mg] 10 mg PO DAILY 04/06/18 [History] PANTOPRAZOLE 40 mg Tablet [Protonix 40MG Tablet] 40 mg PO QAM 04/06/18 [History] Fluticasone/Umeclidin/Vilanter [Trelegy Ellipta 100-62.5-25] 1 each IH DAILY 04/28/20 [History] Prednisone 10 mg [Deltasone 10 mg] 10 mg PO DAILY 04/28/20 [History] Hx Tetanus, Diphtheria Vaccination/Date Given: Yes Hx Influenza Vaccination/Date Given: Yes Hx Pneumococcal Vaccination/Date Given: Yes Immunizations Up to Date: Yes Travel Risk - International Travel Have you traveled outside of the country in past 3 weeks: No - Coronavirus Screening Are you exhibiting any of the following symptoms?: No Close contact with a COVID-19 positive Pt in past 14-21 Days: No - Vaccine Status Have you recieved a Covid-19 vaccination: No - Review of Systems All Other Systems: Unable due to condition - Past Medical History Pertinent Past Medical History: Yes Neurological History: No Pertinent History ENT History: Other Cardiac History: Aneurysm, High Cholesterol, Hypertension Respiratory History: COPD Endocrine Medical History: Hypothyroidism Musculoskeletal History: Osteoporosis GI Medical History: No Pertinent History History: No Pertinent History Psycho-Social History: No Pertinent History Female Reproductive Disorders: No Pertinent History Other Medical History: patient had injury to left eye causing patient to only see out of left side of eye,iron defiency, PAD - Past Surgical History Past Surgical History: Yes Neuro Surgical History: No Pertinent History Cardiac: Angioplasty Respiratory: No Pertinent History Gastrointestinal: No Pertinent History Genitourinary: No Pertinent History Musculoskeletal: No Pertinent History Female Surgical History: Hysterectomy, Breast Implant Other Surgical History: femoral bypass. bilateral carotids - Social History Smoking Status: Former smoker How long have you smoked: 40years Exposure to second hand smoke: No Drug Use: none Patient Lives Alone: Yes Significant Family History: no pertinent family hx - Nursing Vital Signs Nursing Vital Signs: Initial Vital Signs Temperature 92.5 F 06/28/21 10:32 Pulse Rate 75 06/28/21 10:32 Respiratory Rate 18 06/28/21 10:32 Blood Pressure 88/69 06/28/21 10:32 O2 Sat by Pulse Oximetry 94 L 06/28/21 10:32 Pain Scale Pain Intensity 0 Hypotensive - Physical Exam General Appearance: severe distress Eye Exam: other (Pupils fixed and dilated) Respiratory Exam: other (Pt intubated/bagged/placed on vent) Cardiovascular/Chest Exam: regular rate/rhythm Abdominal/Gastrointestinal Exam: soft Rectal Exam: other (Possible blood in stool) Peripheral Pulses Exam: carotid (R): 0, carotid (L): 0 Neurologic Exam: other (GCS 2T) Lymphatic Exam: No adenopathy SpO2 Interpretation: airway management int. SpO2: 100 O2 Delivery: Ventilator Procedures - Intubation Intubation Indications: respiratory arrest Intubation Method: orotracheal, curved blade Tube Size (cm): 8.0 Endotracheal Tube Confirmation: bilateral breath sounds, positive end tidal CO2, good rise & fall of chest, stable or inc of O2 sat Intubation Complications: no complications Performed By: ED Physician Post Intubation Xray: Yes - Course EKG Interpreted by Me: RATE (NSR/R75/Nonspecific IVCD/Prolonged QT-QTc/Nonspecif St changes V3-V6) - Radiology Exams Chest X-ray Interpretation: Discussed w/ radiologist (CXR-ETT above catherine/cardiomegaly/vascular congestion/New R apical opacity/Repeat XR demonstrates NG tube in stomach) - CT Exams Head CT Interpretation: Discussed w/radiologist (CT head-no bleed or acute infarct) Chest CT Interpretation: Discussed w/radiologist (CT chest-cardiomegaly/pulmonary edema/B posterior airspace dz/enlarging distal AAA) Ordered Tests: Active Orders 24 hr Category Date Time Status CO2 Monitoring ROUTINE Care 06/28/21 11:06 Completed EKG-ER Only STAT Care 06/28/21 10:03 Completed CHEST 1 VIEW (PORTABLE) Stat Exams 06/28/21 10:03 Completed CHEST 1 VIEW (PORTABLE) Stat Exams 06/28/21 10:03 Completed CHEST WITHOUT CONTRAST [CT] Stat Exams 06/28/21 10:36 Completed HEAD WITHOUT CONTRAST [CT] Stat Exams 06/28/21 10:33 Completed ABG [ARTERIAL BLOOD GASES] Stat Lab 06/28/21 10:00 Completed ABG [ARTERIAL BLOOD GASES] Urgent Lab 06/28/21 12:19 Completed BLOOD CULTURE Stat Lab 06/28/21 11:30 Received CBC W DIFF Stat Lab 06/28/21 10:14 Completed CMP Stat Lab 06/28/21 10:14 Completed CULTURE,URINE Stat Lab 06/28/21 11:17 Ordered Lactic Acid Routine Lab 06/28/21 11:30 Completed Lactic Acid Stat Lab 06/28/21 10:03 Completed Lactic Acid Stat Lab 06/28/21 12:11 Completed Manual Differential NC Stat Lab 06/28/21 10:14 Completed POCT GLUCOSE Stat Lab 06/28/21 11:38 Completed PROTIME WITH INR Stat Lab 06/28/21 10:14 Completed PTT Stat Lab 06/28/21 10:14 Completed TROPONIN Q3H Lab 06/28/21 10:14 Completed TROPONIN Q3H Lab 06/28/21 11:25 Completed UA W/RFX UR CULTURE Stat Lab 06/28/21 11:17 Completed Intubate Patient STAT RT 06/28/21 11:06 Completed Respiratory Therapy Assessment DAILY RT 06/28/21 11:05 Completed Ventilator Management Q4H RT 06/28/21 11:06 Completed Medication Summary Discontinued Medications Generic Name Dose Route Start Last Admin Trade Name Freq PRN Reason Stop Dose Admin Fentanyl Citrate 25 mcg 06/28/21 11:44 06/28/21 12:01 Fentanyl Citrate 100 Mcg/2 Ml* Vial IV 06/28/21 11:45 25 mcg STAT ONE Administration Fentanyl Citrate Confirm 06/28/21 11:46 Fentanyl Citrate 100 Mcg/2 Ml* Vial Administered 06/28/21 11:47 Dose 100 mcg .ROUTE .STK-MED ONE Fentanyl Citrate Confirm 06/28/21 13:00 Fentanyl Citrate 100 Mcg/2 Ml* Vial Administered 06/28/21 13:01 Dose 100 mcg .ROUTE .STK-MED ONE Furosemide 40 mg 06/28/21 11:24 06/28/21 11:25 Furosemide 40 Mg/4 Ml Vial IV 06/28/21 11:25 40 mg STAT ONE Administration Furosemide Confirm 06/28/21 11:24 Furosemide 40 Mg/4 Ml Vial Administered 06/28/21 11:25 Dose 40 mg .ROUTE .STK-MED ONE Meropenem 1 g/ Sodium Chloride 100 mls @ 200 mls/hr 06/28/21 10:11 06/28/21 10:31 IV 06/28/21 10:40 200 mls/hr STAT ONE Administration Sodium Chloride Confirm 06/28/21 10:58 Sodium Chloride 0.9% 1000 Ml Administered 06/28/21 10:59 Dose 1,000 mls @ ud .ROUTE .STK-MED ONE Insulin Human Regular 100 unit 100 mls @ 2 mls/hr 06/28/21 11:41 06/28/21 11:57 / Sodium Chloride IV 07/28/21 11:40 2 unit/hr .Q24H PRN 2 mls/hr DKA/HYPERGLYCEMIA Administration Protocol 2 UNIT/HR Insulin Human Regular 10 unit 06/28/21 10:35 06/28/21 10:59 Insulin Regular, Human 1 Unit SQ 06/28/21 10:36 10 unit STAT ONE Administration Insulin Human Regular Confirm 06/28/21 10:58 Insulin Regular, Human 1 Unit Administered 06/28/21 10:59 Dose 10 unit .ROUTE .STK-MED ONE Midazolam HCl 2 mg 06/28/21 12:01 06/28/21 12:06 Midazolam Hcl 2 Mg/2 Ml Vial IV 06/28/21 12:02 2 mg 1XONLY ONE Administration Midazolam HCl Confirm 06/28/21 12:04 Midazolam Hcl 5 Mg/5 Ml Vial Administered 06/28/21 12:05 Dose 5 mg .ROUTE .STK-MED ONE Lab/Rad Data: Laboratory Result Diagrams 06/28/21 10:14 06/28/21 10:14 Laboratory Results 06/28/21 06/28/21 06/28/21 Range/Units Unknown Unknown Unknown WBC (4.0-10.5) K/mm3 RBC (4.1-5.4) M/mm3 Hgb (12.0-16.0) gm/dl Hct (35-47) % MCV (78-100) fl MCH (26-32) pg MCHC (32-36) g/dl RDW (11.5-14.0) % Plt Count (150-450) K/mm3 MPV (7.5-11.0) fl Segmented Neutrophils (36.0-66.0) % Band Neutrophils (0.0-2.0) % Lymphocytes (Manual) (24-44) % Monocytes (Manual) (0.0-12.0) % Eosinophils (Manual) (0.00-3.0) % Hypochromia Platelet Estimate (NORMAL) RBC Morphology Polychromasia Carmela Cells PT (9.4-12.5) SECONDS INR (0.8-3.0) APTT (25.1-36.5) SECONDS Puncture Site pCO2 (35-45) mmHg pO2 (75-100) mmHg Base Excess (-2.0-2.0) O2 Saturation (94-100) g/dF ABG pH (7.35-7.45) ABG HCO3 (22-28) ABG O2 Sat (Measured) (95-100) % Kulwinder Test A-a Gradient a/A Ratio Hemoglobin Carboxyhemoglobin (0.0-6.9) % THgb Methemoglobin (1.4-1.5) % Potassium (3.5-5.1) Temperature C POC O2 Flow Rate % Vent Mode Vent Rate /MIN Tidal Volume cc PEEP cmH2O Sodium (137-145) mmol/L Chloride (98-107) mmol/L Carbon Dioxide (22-30) mmol/L Anion Gap (5-15) MEQ/L BUN (7-17) mg/dL Creatinine (0.52-1.04) mg/dL Estimated GFR ML/MIN Glucose (74-106) mg/dL POC Glucometer (74 to 106) mg/dL Lactic Acid (0.4-2.0) Calcium (8.4-10.2) mg/dL Total Bilirubin (0.2-1.3) mg/dL AST (14-36) U/L ALT (0-35) U/L Alkaline Phosphatase (38-126) U/L Troponin I (0.000-0.034) ng/mL Serum Total Protein (6.3-8.2) g/dL Albumin (3.5-5.0) g/dL Urine Color (YELLOW) Urine Appearance (CLEAR) Urine pH (5-6) Ur Specific [place] (1.005-1.025) Urine Protein (Negative) Urine Ketones (NEGATIVE) Urine Blood (0-5) Jeremy/ul Urine Nitrite (NEGATIVE) Urine Bilirubin (NEGATIVE) Urine Urobilinogen (0-1) mg/dL Ur Leukocyte Esterase (NEGATIVE) Urine WBC (Auto) (0-5) /HPF Urine RBC (Auto) (0-2) /HPF U Hyaline Cast (Auto) (0-2) /LPF U Epithel Cells (Auto) (FEW) /HPF Urine Bacteria (Auto) (NEGATIVE) /HPF U Non-Squamous Epi Cells (FEW) /HPF Urine Mucus (Auto) (NEGATIVE) /HPF Urine Yeast (Budding) (NEGATIVE) /HPF Urine Culture Reflexed (NO) Urine Glucose (NEGATIVE) mg/dL Influenza Type A Ag (NEGATIVE) Influenza Type B Ag (NEGATIVE) RSV (PCR) (Negative) SARS-CoV-2 (PCR) (NEGATIVE) ABO Group A Rh Factor POSITIVE Antibody Screen NEGATIVE (NEGATIVE) Crossmatch COMPATIBLE COMPATIBLE COMPATIBLE (COMPATIBLE) 06/28/21 06/28/21 06/28/21 Range/Units 12:19 12:11 11:43 WBC (4.0-10.5) K/mm3 RBC (4.1-5.4) M/mm3 Hgb (12.0-16.0) gm/dl Hct (35-47) % MCV (78-100) fl MCH (26-32) pg MCHC (32-36) g/dl RDW (11.5-14.0) % Plt Count (150-450) K/mm3 MPV (7.5-11.0) fl Segmented Neutrophils (36.0-66.0) % Band Neutrophils (0.0-2.0) % Lymphocytes (Manual) (24-44) % Monocytes (Manual) (0.0-12.0) % Eosinophils (Manual) (0.00-3.0) % Hypochromia Platelet Estimate (NORMAL) RBC Morphology Polychromasia Carmela Cells PT (9.4-12.5) SECONDS INR (0.8-3.0) APTT (25.1-36.5) SECONDS Puncture Site RIGHT RADIAL pCO2 49 H (35-45) mmHg pO2 185 H* (75-100) mmHg Base Excess -17.8 L (-2.0-2.0) O2 Saturation 97.5 (94-100) g/dF ABG pH 7.03 L* (7.35-7.45) ABG HCO3 12.9 L* (22-28) ABG O2 Sat (Measured) 98.8 (95-100) % Kulwinder Test NOT APPLICABLE A-a Gradient 324 a/A Ratio 0.36 Hemoglobin 8.8 Carboxyhemoglobin 0.6 (0.0-6.9) % THgb Methemoglobin 0.7 L (1.4-1.5) % Potassium 4.6 (3.5-5.1) Temperature 37.0 C POC O2 Flow Rate 80 % Vent Mode A/C Vent Rate /MIN Tidal Volume 500 cc PEEP 5.0 cmH2O Sodium (137-145) mmol/L Chloride (98-107) mmol/L Carbon Dioxide (22-30) mmol/L Anion Gap (5-15) MEQ/L BUN (7-17) mg/dL Creatinine (0.52-1.04) mg/dL Estimated GFR ML/MIN Glucose (74-106) mg/dL POC Glucometer (74 to 106) mg/dL Lactic Acid 7.0 H (0.4-2.0) Calcium (8.4-10.2) mg/dL Total Bilirubin (0.2-1.3) mg/dL AST (14-36) U/L ALT (0-35) U/L Alkaline Phosphatase (38-126) U/L Troponin I (0.000-0.034) ng/mL Serum Total Protein (6.3-8.2) g/dL Albumin (3.5-5.0) g/dL Urine Color (YELLOW) Urine Appearance (CLEAR) Urine pH (5-6) Ur Specific [place] (1.005-1.025) Urine Protein (Negative) Urine Ketones (NEGATIVE) Urine Blood (0-5) Jeremy/ul Urine Nitrite (NEGATIVE) Urine Bilirubin (NEGATIVE) Urine Urobilinogen (0-1) mg/dL Ur Leukocyte Esterase (NEGATIVE) Urine WBC (Auto) (0-5) /HPF Urine RBC (Auto) (0-2) /HPF U Hyaline Cast (Auto) (0-2) /LPF U Epithel Cells (Auto) (FEW) /HPF Urine Bacteria (Auto) (NEGATIVE) /HPF U Non-Squamous Epi Cells (FEW) /HPF Urine Mucus (Auto) (NEGATIVE) /HPF Urine Yeast (Budding) (NEGATIVE) /HPF Urine Culture Reflexed (NO) Urine Glucose (NEGATIVE) mg/dL Influenza Type A Ag NEGATIVE (NEGATIVE) Influenza Type B Ag NEGATIVE (NEGATIVE) RSV (PCR) NEGATIVE (Negative) SARS-CoV-2 (PCR) NEGATIVE (NEGATIVE) ABO Group Rh Factor Antibody Screen (NEGATIVE) Crossmatch (COMPATIBLE) 06/28/21 06/28/21 06/28/21 Range/Units 11:38 11:30 11:25 WBC (4.0-10.5) K/mm3 RBC (4.1-5.4) M/mm3 Hgb (12.0-16.0) gm/dl Hct (35-47) % MCV (78-100) fl MCH (26-32) pg MCHC (32-36) g/dl RDW (11.5-14.0) % Plt Count (150-450) K/mm3 MPV (7.5-11.0) fl Segmented Neutrophils (36.0-66.0) % Band Neutrophils (0.0-2.0) % Lymphocytes (Manual) (24-44) % Monocytes (Manual) (0.0-12.0) % Eosinophils (Manual) (0.00-3.0) % Hypochromia Platelet Estimate (NORMAL) RBC Morphology Polychromasia Carmela Cells PT (9.4-12.5) SECONDS INR (0.8-3.0) APTT (25.1-36.5) SECONDS Puncture Site pCO2 (35-45) mmHg pO2 (75-100) mmHg Base Excess (-2.0-2.0) O2 Saturation (94-100) g/dF ABG pH (7.35-7.45) ABG HCO3 (22-28) ABG O2 Sat (Measured) (95-100) % Kulwinder Test A-a Gradient a/A Ratio Hemoglobin Carboxyhemoglobin (0.0-6.9) % THgb Methemoglobin (1.4-1.5) % Potassium (3.5-5.1) Temperature C POC O2 Flow Rate % Vent Mode Vent Rate /MIN Tidal Volume cc PEEP cmH2O Sodium (137-145) mmol/L Chloride (98-107) mmol/L Carbon Dioxide (22-30) mmol/L Anion Gap (5-15) MEQ/L BUN (7-17) mg/dL Creatinine (0.52-1.04) mg/dL Estimated GFR ML/MIN Glucose (74-106) mg/dL POC Glucometer 427 H (74 to 106) mg/dL Lactic Acid 9.2 H (0.4-2.0) Calcium (8.4-10.2) mg/dL Total Bilirubin (0.2-1.3) mg/dL AST (14-36) U/L ALT (0-35) U/L Alkaline Phosphatase (38-126) U/L Troponin I 0.183 H* (0.000-0.034) ng/mL Serum Total Protein (6.3-8.2) g/dL Albumin (3.5-5.0) g/dL Urine Color (YELLOW) Urine Appearance (CLEAR) Urine pH (5-6) Ur Specific [place] (1.005-1.025) Urine Protein (Negative) Urine Ketones (NEGATIVE) Urine Blood (0-5) Jeremy/ul Urine Nitrite (NEGATIVE) Urine Bilirubin (NEGATIVE) Urine Urobilinogen (0-1) mg/dL Ur Leukocyte Esterase (NEGATIVE) Urine WBC (Auto) (0-5) /HPF Urine RBC (Auto) (0-2) /HPF U Hyaline Cast (Auto) (0-2) /LPF U Epithel Cells (Auto) (FEW) /HPF Urine Bacteria (Auto) (NEGATIVE) /HPF U Non-Squamous Epi Cells (FEW) /HPF Urine Mucus (Auto) (NEGATIVE) /HPF Urine Yeast (Budding) (NEGATIVE) /HPF Urine Culture Reflexed (NO) Urine Glucose (NEGATIVE) mg/dL Influenza Type A Ag (NEGATIVE) Influenza Type B Ag (NEGATIVE) RSV (PCR) (Negative) SARS-CoV-2 (PCR) (NEGATIVE) ABO Group Rh Factor Antibody Screen (NEGATIVE) Crossmatch (COMPATIBLE) 06/28/21 06/28/21 06/28/21 Range/Units 11:17 10:14 10:14 WBC (4.0-10.5) K/mm3 RBC (4.1-5.4) M/mm3 Hgb (12.0-16.0) gm/dl Hct (35-47) % MCV (78-100) fl MCH (26-32) pg MCHC (32-36) g/dl RDW (11.5-14.0) % Plt Count (150-450) K/mm3 MPV (7.5-11.0) fl Segmented Neutrophils (36.0-66.0) % Band Neutrophils (0.0-2.0) % Lymphocytes (Manual) (24-44) % Monocytes (Manual) (0.0-12.0) % Eosinophils (Manual) (0.00-3.0) % Hypochromia Platelet Estimate (NORMAL) RBC Morphology Polychromasia Carmela Cells PT 12.4 (9.4-12.5) SECONDS INR 1.05 (0.8-3.0) APTT 46.5 H (25.1-36.5) SECONDS Puncture Site pCO2 (35-45) mmHg pO2 (75-100) mmHg Base Excess (-2.0-2.0) O2 Saturation (94-100) g/dF ABG pH (7.35-7.45) ABG HCO3 (22-28) ABG O2 Sat (Measured) (95-100) % Kulwinder Test A-a Gradient a/A Ratio Hemoglobin Carboxyhemoglobin (0.0-6.9) % THgb Methemoglobin (1.4-1.5) % Potassium (3.5-5.1) Temperature C POC O2 Flow Rate % Vent Mode Vent Rate /MIN Tidal Volume cc PEEP cmH2O Sodium (137-145) mmol/L Chloride (98-107) mmol/L Carbon Dioxide (22-30) mmol/L Anion Gap (5-15) MEQ/L BUN (7-17) mg/dL Creatinine (0.52-1.04) mg/dL Estimated GFR ML/MIN Glucose (74-106) mg/dL POC Glucometer (74 to 106) mg/dL Lactic Acid (0.4-2.0) Calcium (8.4-10.2) mg/dL Total Bilirubin (0.2-1.3) mg/dL AST (14-36) U/L ALT (0-35) U/L Alkaline Phosphatase (38-126) U/L Troponin I 0.065 H* (0.000-0.034) ng/mL Serum Total Protein (6.3-8.2) g/dL Albumin (3.5-5.0) g/dL Urine Color YELLOW (YELLOW) Urine Appearance CLOUDY (CLEAR) Urine pH 5.0 (5-6) Ur Specific [place] 1.013 (1.005-1.025) Urine Protein >=500 (Negative) Urine Ketones NEGATIVE (NEGATIVE) Urine Blood SMALL (0-5) Jeremy/ul Urine Nitrite NEGATIVE (NEGATIVE) Urine Bilirubin NEGATIVE (NEGATIVE) Urine Urobilinogen NEGATIVE (0-1) mg/dL Ur Leukocyte Esterase SMALL (NEGATIVE) Urine WBC (Auto) 51-100 (0-5) /HPF Urine RBC (Auto) 26-50 (0-2) /HPF U Hyaline Cast (Auto) 3-5 (0-2) /LPF U Epithel Cells (Auto) RARE (FEW) /HPF Urine Bacteria (Auto) MODERATE (NEGATIVE) /HPF U Non-Squamous Epi Cells RARE (FEW) /HPF Urine Mucus (Auto) SLIGHT (NEGATIVE) /HPF Urine Yeast (Budding) Few (NEGATIVE) /HPF Urine Culture Reflexed ORDERED SEPARATELY (NO) Urine Glucose 150 (NEGATIVE) mg/dL Influenza Type A Ag (NEGATIVE) Influenza Type B Ag (NEGATIVE) RSV (PCR) (Negative) SARS-CoV-2 (PCR) (NEGATIVE) ABO Group Rh Factor Antibody Screen (NEGATIVE) Crossmatch (COMPATIBLE) 06/28/21 06/28/21 06/28/21 Range/Units 10:14 10:14 10:03 WBC 11.9 H (4.0-10.5) K/mm3 RBC 2.22 L (4.1-5.4) M/mm3 Hgb 6.2 L* (12.0-16.0) gm/dl Hct 21.9 L (35-47) % MCV 98.6 (78-100) fl MCH 27.9 (26-32) pg MCHC 28.3 L (32-36) g/dl RDW 16.1 H (11.5-14.0) % Plt Count 338 (150-450) K/mm3 MPV 10.6 (7.5-11.0) fl Segmented Neutrophils 47 (36.0-66.0) % Band Neutrophils 1 (0.0-2.0) % Lymphocytes (Manual) 48 H (24-44) % Monocytes (Manual) 3 (0.0-12.0) % Eosinophils (Manual) 1 (0.00-3.0) % Hypochromia 1+ Platelet Estimate NORMAL (NORMAL) RBC Morphology ABNORMAL Polychromasia 1+ [place] Cells 1+ PT (9.4-12.5) SECONDS INR (0.8-3.0) APTT (25.1-36.5) SECONDS Puncture Site pCO2 (35-45) mmHg pO2 (75-100) mmHg Base Excess (-2.0-2.0) O2 Saturation (94-100) g/dF ABG pH (7.35-7.45) ABG HCO3 (22-28) ABG O2 Sat (Measured) (95-100) % Kulwinder Test A-a Gradient a/A Ratio Hemoglobin Carboxyhemoglobin (0.0-6.9) % THgb Methemoglobin (1.4-1.5) % Potassium 5.2 H (3.5-5.1) Temperature C POC O2 Flow Rate % Vent Mode Vent Rate /MIN Tidal Volume cc PEEP cmH2O Sodium 135 L (137-145) mmol/L Chloride 109 H (98-107) mmol/L Carbon Dioxide 12 L* (22-30) mmol/L Anion Gap 19.5 H (5-15) MEQ/L BUN 25 H (7-17) mg/dL Creatinine 2.63 H (0.52-1.04) mg/dL Estimated GFR 19.0 ML/MIN Glucose 495 H (74-106) mg/dL POC Glucometer (74 to 106) mg/dL Lactic Acid 10.9 H (0.4-2.0) Calcium 7.0 L (8.4-10.2) mg/dL Total Bilirubin 0.20 (0.2-1.3) mg/dL AST 186 H (14-36) U/L ALT 120 H (0-35) U/L Alkaline Phosphatase 47 (38-126) U/L Troponin I (0.000-0.034) ng/mL Serum Total Protein 4.1 L (6.3-8.2) g/dL Albumin 2.1 L (3.5-5.0) g/dL Urine Color (YELLOW) Urine Appearance (CLEAR) Urine pH (5-6) Ur Specific [place] (1.005-1.025) Urine Protein (Negative) Urine Ketones (NEGATIVE) Urine Blood (0-5) Jeremy/ul Urine Nitrite (NEGATIVE) Urine Bilirubin (NEGATIVE) Urine Urobilinogen (0-1) mg/dL Ur Leukocyte Esterase (NEGATIVE) Urine WBC (Auto) (0-5) /HPF Urine RBC (Auto) (0-2) /HPF U Hyaline Cast (Auto) (0-2) /LPF U Epithel Cells (Auto) (FEW) /HPF Urine Bacteria (Auto) (NEGATIVE) /HPF U Non-Squamous Epi Cells (FEW) /HPF Urine Mucus (Auto) (NEGATIVE) /HPF Urine Yeast (Budding) (NEGATIVE) /HPF Urine Culture Reflexed (NO) Urine Glucose (NEGATIVE) mg/dL Influenza Type A Ag (NEGATIVE) Influenza Type B Ag (NEGATIVE) RSV (PCR) (Negative) SARS-CoV-2 (PCR) (NEGATIVE) ABO Group Rh Factor Antibody Screen (NEGATIVE) Crossmatch (COMPATIBLE) 06/28/21 Range/Units 10:00 WBC (4.0-10.5) K/mm3 RBC (4.1-5.4) M/mm3 Hgb (12.0-16.0) gm/dl Hct (35-47) % MCV (78-100) fl MCH (26-32) pg MCHC (32-36) g/dl RDW (11.5-14.0) % Plt Count (150-450) K/mm3 MPV (7.5-11.0) fl Segmented Neutrophils (36.0-66.0) % Band Neutrophils (0.0-2.0) % Lymphocytes (Manual) (24-44) % Monocytes (Manual) (0.0-12.0) % Eosinophils (Manual) (0.00-3.0) % Hypochromia Platelet Estimate (NORMAL) RBC Morphology Polychromasia [place] Cells PT (9.4-12.5) SECONDS INR (0.8-3.0) APTT (25.1-36.5) SECONDS Puncture Site lr pCO2 71 H* (35-45) mmHg pO2 202 H* (75-100) mmHg Base Excess (-2.0-2.0) O2 Saturation 97.9 (94-100) g/dF ABG pH 6.80 L* (7.35-7.45) ABG HCO3 (22-28) ABG O2 Sat (Measured) 99.0 (95-100) % Kulwinder Test NOT APPLICABLE A-a Gradient 422 a/A Ratio 0.32 Hemoglobin 5.7 L* Carboxyhemoglobin 0.7 (0.0-6.9) % THgb Methemoglobin 0.4 L (1.4-1.5) % Potassium 4.4 (3.5-5.1) Temperature 37.0 C POC O2 Flow Rate 100 % Vent Mode A/C Vent Rate 14 /MIN Tidal Volume 500 cc PEEP 5 cmH2O Sodium (137-145) mmol/L Chloride (98-107) mmol/L Carbon Dioxide (22-30) mmol/L Anion Gap (5-15) MEQ/L BUN (7-17) mg/dL Creatinine (0.52-1.04) mg/dL Estimated GFR ML/MIN Glucose (74-106) mg/dL POC Glucometer (74 to 106) mg/dL Lactic Acid (0.4-2.0) Calcium (8.4-10.2) mg/dL Total Bilirubin (0.2-1.3) mg/dL AST (14-36) U/L ALT (0-35) U/L Alkaline Phosphatase (38-126) U/L Troponin I (0.000-0.034) ng/mL Serum Total Protein (6.3-8.2) g/dL Albumin (3.5-5.0) g/dL Urine Color (YELLOW) Urine Appearance (CLEAR) Urine pH (5-6) Ur Specific [place] (1.005-1.025) Urine Protein (Negative) Urine Ketones (NEGATIVE) Urine Blood (0-5) Jeremy/ul Urine Nitrite (NEGATIVE) Urine Bilirubin (NEGATIVE) Urine Urobilinogen (0-1) mg/dL Ur Leukocyte Esterase (NEGATIVE) Urine WBC (Auto) (0-5) /HPF Urine RBC (Auto) (0-2) /HPF U Hyaline Cast (Auto) (0-2) /LPF U Epithel Cells (Auto) (FEW) /HPF Urine Bacteria (Auto) (NEGATIVE) /HPF U Non-Squamous Epi Cells (FEW) /HPF Urine Mucus (Auto) (NEGATIVE) /HPF Urine Yeast (Budding) (NEGATIVE) /HPF Urine Culture Reflexed (NO) Urine Glucose (NEGATIVE) mg/dL Influenza Type A Ag (NEGATIVE) Influenza Type B Ag (NEGATIVE) RSV (PCR) (Negative) SARS-CoV-2 (PCR) (NEGATIVE) ABO Group Rh Factor Antibody Screen (NEGATIVE) Crossmatch (COMPATIBLE) - Progress Progress: improved Progress Note: 06/28/21 19:37 After calls to multiple facilities, pt accepted by Dr. Pagan at [facility]. Pt originally turned down at [facility], but family called Dr. Cox, who accepted pt and acquired bed. Pt in stable, but critical condition when transferred to [facility]. Pt transferred w Levafed drip and Insulin drip running. 06/28/21 22:30 Pt's ABG's/acidosis/lactic acid improving before transfer Counseled pt/family regarding: lab results, diagnosis (Communication w family about poor prognosis/Labs/CT results continuously during stay), rad results - Departure Departure Disposition: Transfer Clinical Impression: Respiratory arrest, Pneumonia, Congestive heart failure, Renal failure, Sepsis, Anemia Condition: Serious Critical Care Time: Yes Critical Care Time(excluding separately billable procedures): Critcal > 194 mins Referrals: MINDY MILLER [employer] [Primary Care Provider] - Follow up/PCP as directed Instructions: Heart Failure
== END 2021-06-28 13:05 | disposition short-term general hospital (02) ==
LOC: ED 09:44
DX: A41.9 Sepsis, unspecified organism (principal); R65.20 Severe sepsis without septic shock; N17.9 Acute kidney failure, unspecified; J18.9 Pneumonia, unspecified organism; R09.2 Respiratory arrest; I11.0 Hypertensive heart disease with heart failure; I50.9 Heart failure, unspecified; D64.9 Anemia, unspecified; E78.5 Hyperlipidemia, unspecified; J44.9 Chronic obstructive pulmonary disease, unspecified; Z20.828 Contact with and (suspected) exposure to other viral communicable diseases
CPT/HCPCS: 0241U; 31500; 36415; 36430; 36600; 70450; 71045; 71250; 80053; 81001; 82375; 82803; 82947; 83605; 84484; 85025; 85610; 85730; 86850; 86900; 86901; 86922; 87040; 87086; 93005; 94002; 96372; 96375; 99285; 87077; 87186; 96374; J1815; J1940; J2250; J3010